=== PATIENT | male | born 1955 | race Caucasian/White ===

== ENCOUNTER 2023-02-09 11:43 | Outpatient (CLI) | payer MEDICARE, OTHER, SELFPAY ==
[2023-02-09 19:42] LABS: Appearance Urine Clear (Clear); Bilirubin Urine Negative (Negative); Blood Urine Negative (Negative); Color Urine Yellow (Yellow); Glucose Urine UA Negative (Negative); Ketones Urine Negative (Negative); Leukocyte Esterase Ur Negative LEU/UL (Negative); Nitrate Urine Negative (Negative); Protein Urine Negative (Negative); Specific Grav Ur 1.007 (1.001-1.035); Urobilinogen Urine 0.2 mg/dL (<2.0); pH Urine 6.5 (5.0-9.0)
[2023-02-09 19:51] LABS: Add Urine Microscopic? NO
== END 2023-02-09 11:44 | disposition home or self-care (01) ==
PROVIDERS: PCP Emergency Medicine; Visit Provider Emergency Medicine
DX: N39.0 Urinary tract infection, site not specified (principal)
CPT/HCPCS: 81003; J2704

== ENCOUNTER 2023-07-12 10:06 | Outpatient (CLI) | payer MEDICARE, OTHER, SELFPAY ==
[2023-07-12 12:04] LABS: Alanine Aminotransferase 17 U/L (6-50); Albumin Level 4.6 g/dL (3.5-5.1); Alkaline Phosphatase 62 U/L (38-126); Anion Gap 5 mmol/L (4-12); Aspartate Amino Transferase 39 U/L (17-59); Bilirubin,Total 0.7 mg/dL (0.2-1.3); Blood Urea Nitrogen 13 mg/dL (9-20); Calcium 9.7 mg/dL (8.4-10.2); Carbon Dioxide 29 mmol/L (22-30); Chloride 107 mmol/L (98-107); Cholesterol 207 mg/dL (0-200); Estimated Glomerular Filt Rate > 60; Glucose 96 mg/dL (65-110); HDL Direct 47 mg/dL; Potassium 4.3 mmol/L (3.4-5.0); Sodium 141 mmol/L (137-145); Triglycerides 90 mg/dL (<150)
[2023-07-12 12:14] LABS: LDL Cholesterol Direct 128 mg/dL
[2023-07-12 12:32] LABS: Prostate Specific Antigen 7.2 ng/mL (< OR = 4.0)
[2023-07-12 17:23] LABS: Hemoglobin A1C 5.6 % (<5.7)
== END 2023-07-12 10:07 | disposition home or self-care (01) ==
LOC: ANHGOSHLAB 10:09
PROVIDERS: PCP Emergency Medicine; Visit Provider Emergency Medicine
DX: E78.5 Hyperlipidemia, unspecified (principal); R73.01 Impaired fasting glucose; R97.20 Elevated prostate specific antigen [PSA]; Z12.5 Encounter for screening for malignant neoplasm of prostate
CPT/HCPCS: 36415; 80053; 80061; 83036; 84153; G0103

== ENCOUNTER 2023-07-29 16:19 | Outpatient (CLI) | payer MEDICARE, OTHER, SELFPAY ==
--- NOTE | ~2023-07-29 | US_ITS ---
EXAMINATION: US soft tissue groin LT DATE: 07/29/2023 17:01 INDICATION: Unilateral left inguinal hernia presenting with one month of pain with exertion TECHNIQUE: Multiple grayscale and Doppler ultrasound images of the left inguinal region were obtained . COMPARISON: Pelvis MRI dated 03/20/2008 FINDINGS: No inguinal hernia identified on the provided images. No pathologically enlarged lymphadenopathy or o ther abnormal masses or fluid collections identified. IMPRESSION: 1. No evident left inguinal hernia however bilateral inguinal hernias are present at the time of a pe lvic MRI dated 03/20/2008. If there has not been prior inguinal hernia repair, would consider CT of t he pelvis for more further evaluation. Reviewed, dictated and finalized at location A. IMPRESSION: 1. No evident left inguinal hernia however bilateral inguinal hernias are prese nt at the time of a pelvic MRI dated 03/20/2008. If there has not been prior in guinal hernia repair, would consider CT of the pelvis for more further evaluati on.
== END 2023-07-29 16:20 | disposition home or self-care (01) ==
LOC: ANHIMG 16:20
PROVIDERS: PCP Emergency Medicine; Visit Provider Emergency Medicine
DX: K40.90 Unilateral inguinal hernia, without obstruction or gangrene, not specified as recurrent (principal)
CPT/HCPCS: 76882

== ENCOUNTER 2023-08-08 12:20 | Outpatient (CLI) | payer MEDICARE, OTHER, SELFPAY ==
--- NOTE | ~2023-08-08 | CT_ITS ---
EXAMINATION: CT abdomen pelvis wo con DATE: 08/08/2023 12:48 INDICATION: Unilateral inguinal hernia without obstruction. TECHNIQUE: Computed tomography (CT) of the abdomen and pelvis was performed without intravenous contr ast. Automated exposure control and iterative reconstruction technique were employed. The dose-length product was 681.56 mGy-cm. COMPARISON: Ultrasound 07/29/2023 FINDINGS: The visualized portions of the lung bases demonstrate mild atelectasis. No pleural effusion . The heart size is normal. No pericardial effusion. There is a 5 mm cyst in the liver. The gallbladd er, spleen, and adrenal glands are normal. There are calcifications in the head of the pancreas, cons istent with chronic pancreatitis. There is a 4 mm stone in right kidney. Left kidney is normal. The p rostate is moderately enlarged. There are bilateral inguinal hernias containing fat. There is diverti culosis of the colon without evidence of diverticulitis. The appendix is normal. There are no dilated loops of bowel. There are no pathologically enlarged lymph nodes. There is no free intraperitoneal f luid. There is moderate lumbar spondylosis. IMPRESSION: 1. Bilateral inguinal hernias containing fat. Reviewed, dictated and finalized at location A.
== END 2023-08-08 12:21 | disposition home or self-care (01) ==
LOC: ANHIMG 12:20
PROVIDERS: PCP Emergency Medicine; Visit Provider Emergency Medicine
DX: K40.20 Bilateral inguinal hernia, without obstruction or gangrene, not specified as recurrent (principal)
CPT/HCPCS: 74176

== ENCOUNTER 2023-08-26 12:43 | Outpatient (CLI) | payer MEDICARE, OTHER, SELFPAY | END 2023-08-26 12:44 | disposition home or self-care (01) | LOC: ANHSURGERY 12:48 | PROVIDERS: PCP Emergency Medicine; Visit Provider Surgery | DX: Z01.818 Encounter for other preprocedural examination (principal); K40.90 Unilateral inguinal hernia, without obstruction or gangrene, not specified as recurrent | CPT/HCPCS: 36415; 86850; 86900; 86901 ==

== ENCOUNTER 2023-08-31 03:28 | Day surgery (SDC) | payer MEDICARE, OTHER, SELFPAY ==
--- NOTE | 2023-08-23 13:37 | PC.NURSE ---
Report to the Outpatient Waiting Room, entrance under the green pavilion located off [facility], at time ___11:30 AM____ on date ___08/31/23____. Planned Procedure Time: _1:30 PM . Time changes happen often and if your time is changed the preop area will call you the afternoon before. - You and your visitor will be asked to self-screen and do not enter if you have any COVID symptoms. - A mask is optional within the hospital at this time. Patients may have clear liquids (water, carbonated beverages, clear teas, apple juice) until 3 hours prior to surgery(10:30AM) with a maximum of 20 ounces. - No food from midnight until time of surgery - Infants may have breast milk until 4 hours before surgery, infant formula 6 hours prior to surgery. - Children will be allowed to drink immediately following surgery. If applicable, please bring a bottle or sippy cup to assist with drinking. Juice, water, soda, and popsicles are readily available. For infants on formula, please bring formula the day of surgery. Pacifiers are allowed. Take the following medications with a SIP of water the morning of surgery: __INHALER IF NEEDED DO NOT STOP ANY OF YOUR OTHER PRESCRIPTION MEDICATIONS PRIOR TO SURGERY ?EXCEPT THE FOLLOWING Medications to discontinue per physician HOLD ALL VITAMINS AND SUPPLEMENTS 3 DAYS PRE OP .LAST DOSE 08/27/23 Please no make-up, nail swedish, hairspray, perfume, deodorant, or body powder the day of surgery. No jewelry (including any body piercings) or valuables the day of surgery, leave them at home. Please take a shower or bath the night before, or the morning of, surgery with an antibacterial soap. Wear comfortable, loose fitting clothing. Children are encouraged to wear pajamas. - Jewelry must be removed prior to entering the operating room. Rings and piercings that are not removed may be cut off. - The hospital will not accept responsibility for valuables. - Please leave all valuables, including medications, at home the day of surgery. If you are going home after surgery, a licensed bellman driver must drive you home. - NO public transportation without another adult if you receive anesthesia. - We recommend that an adult stay with you for 24 hours following discharge. - We also recommend that you do not drive, make important decision, drink alcoholic beverages, or take any drugs that were not prescribed by your health care provider for at least 24 hours after your discharge time. Follow any additional instructions given to you from your surgeon. If you or anyone in your household have experienced Covid symptoms in the past week, please notify your surgeon or the nurse liaison at the phone number below for possible testing. Telephone instructions given to __PATIENT and asked if any additional questions and then verbalized understanding. Patient advised to call surgeon office or pre surgery nurse liaison [phone] if any additional questions.
[2023-08-23 13:43] VITALS: BMI 25.7
[2023-08-31] VITALS (11 sets, daily range): BP systolic 120–160; BP diastolic 56–72; PULSE 54–67; RESP 12–20; TEMP 36.2–36.5; O2SAT 94–100
[2023-08-31] MEDS: LACTATED RINGERS 1,000 ML 30 ML IV CONT ×3 (12:00→18:30)
[2023-08-31] MEDS: ACETAMINOPHEN 500 MG TABLET 1000 MG PO (12:49)
[2023-08-31] MEDS: KETOROLAC 15 MG/ML VIAL (*BKC) IV PUSH (12:49)
--- NOTE | 2023-08-31 13:13 | WPDANESEPPF ---
Anes - Initial Pre Proc Eval Procedure: Operation Date: 08/31/23 13:30 Proposed Procedures p Robotic Assisted Recurrent Left Inguinal Hernia Repair with Mesh, Primary Right Inguinal Hernia Repair with Mesh, Possible Open - Karthik Ferrell MD Date/Time: 08/31/23 13:13 Surgeon: Karthik Ferrell MD Pre Op Diagnosis: Recurrent Left Ing Hernia, Prim Right Ing Hernia Patient Data Age: 68 Gender: M Height: 1.83 m Weight: 85.6 kg Last Vital Signs Temp 97.7 F 08/31/23 12:00 Pulse 65 08/31/23 12:00 Resp 16 08/31/23 12:00 BP 160/72 H 08/31/23 12:00 Pulse Ox 100 08/31/23 12:00 O2 Del Method Room Air 08/31/23 12:00 Allergies Allergy/AdvReac Type Severity Reaction Status Date / Time No Known Drug Allergies Allergy Unknown Unknown Verified 08/31/23 12:43 Home Medications Medication Instructions Recorded Confirmed Type albuterol sulfate 90 mcg/actuation 2 puff inhalation Q4H PRN 06/08/22 08/31/23 Rx aerosol inhaler shortness of breath or wheezing #8.5 grams tizanidine 4 mg tablet 4 mg PO QHS PRN muscle spasticity 07/22/23 08/31/23 Rx #60 tabs cholecalciferol (vitamin D3) 50 50 mcg PO DAILY 08/23/23 08/31/23 History mcg (2,000 unit) tablet cyanocobalamin (vitamin B-12) 1,000 mcg PO DAILY 08/23/23 08/31/23 History 1,000 mcg tablet Patient hx anesthesia problems: none Family hx anesthesia problems: none Results Review: All pre-operative results and documents have been reviewed as part of the pre-operative evaluation. [facility] Past Medical History Medical History COVID 2020 Left inguinal hernia Surgical History Surgical History History of back surgery 2018 Family History Family History Father Hypertension Mother Hypertension Cancer Heart disease Cerebrovascular accident Sibling Cancer Hypertension Other Family history of cardiovascular disease Family history of malignant neoplasm Social History Social History Smoking status: Never smoker Alcohol intake: never Substance use: never Lack of Transportation: No Lack of Food: Never True Current Housing: I Have Housing Concerned About Future Housing: No Difficulty Paying Gas/Electric Bills: No Difficulty Paying for Meds: No Currently Unemployed: No Education: High School Diploma/GED Difficulty w/ Childcare or Family Care: No Living arrangements: with family Spiritual care concerns: No Anes - Eval Final PreProcedure Day of Procedure 08/31/23 13:13 Patient weight: normal Heart: regular rate and rhythm Lungs: clear to auscultation Airway: Mallampati scale (Missing bottom right and upper left teeth. None loose. ) class II Neurological: alert and oriented Last oral intake: >/= 8 hours ASA classification: II Emergent: no Anesthetic plan: proceed Anesthesia type and monitoring: general ETT and standard monitoring Results Review: All pre-operative results and documents have been reviewed as part of the pre-operative evaluation. Asthma, seasonal allergies, stable of recent. Informed Consent: The patient's anesthetic plan and its attendant risks and benefits were discussed with the patient/family/POA. Questions were solicited and answers provided to the satisfaction of the patient/family/POA.
--- NOTE | 2023-08-31 13:44 | WPDHPUPDATE1 ---
History and Physical Update Update Date/Time: 08/31/23 13:44 History and Physical has been reviewed, including an updated exam of the patient. There are NO changes in the patient's condition. Risks, benefits, and alternatives have been discussed and questions answered. Patient agrees to proceed with procedure.
[2023-08-31] MEDS: ceFAZolin 2 GM/D5W 50 ML 2 GM/50 ML BAG IVPB (13:50)
[2023-08-31] MEDS: BUPivacaine HCL 0.5% 10 ML AMP 30 ML INFILTRATE (14:16)
[2023-08-31] MEDS: LIDO 1%/EPINEPHRINE 1:100,000 50 ML VIAL 30 ML INFILTRATE (14:16)
--- NOTE | 2023-08-31 17:17 | PM.OP ---
Procedure Note - Brief Procedure Note - Brief Date of procedure: 08/31/23 Recurrent Left Ing Hernia, Prim Right Ing Hernia Post-op diagnosis: Same Procedure performed: Robotic assisted laparoscopic recurrent left inguinal hernia repair with Bard 3D mid weight mesh. Robotic assisted laparoscopic primary right inguinal hernia repair a Bard 3D mid weight mesh Surgeon: Karthik Ferrell MD Anesthesia: GETA Implants: Left-sided inguinal mesh [id number]. Right-sided inguinal mesh [id number]. Estimated blood loss (mL): 25 Drains: No Packing: No Pathology: None sent Complications: No immediate complications Condition: Stable Disposition: PACU
--- NOTE | 2023-08-31 17:34 | SUR.PHASEI ---
Simple mask removed at 1608
[2023-08-31] MEDS: ONDANSETRON INJ 4 MG/2 ML VIAL IV PUSH (18:03)
[2023-08-31] MEDS: oxyCODONE HCL (*CRX) 5 MG TAB IR PO (18:49)
[2023-08-31] MEDS: fentaNYL CITRATE INJ (*CRX) 100 MCG/2 ML VIAL 25 MCG IV PUSH (18:49)
[2023-08-31] MEDS: diphenhydrAMINE HCl INJ 50 MG/ML VIAL 25 MG IV PUSH (19:10)
--- NOTE | 2023-09-01 17:11 | W.PM.PROC2 ---
Procedure Note - Detailed Date of Procedure 09/01/23 Pre-op Diagnosis Recurrent Left Ing Hernia, Prim Right Ing Hernia Post-op Diagnosis Same Procedure Performed Robotic assisted laparoscopic recurrent left inguinal hernia repair with Bard 3D mid weight mesh Robotic assisted laparoscopic primary right inguinal hernia repair with Bard 3D mid weight mesh Surgeon aKrthik Ferrell MD Anesthesia General Indications Patient is a 68-year-old gentleman who had a left inguinal repair with mesh the open approach by Dr. Nelson about 4 to 5 years ago. Seen has started having recurrent pain in left groin and on CT scan was noted have recurrent left inguinal hernia. On physical examination he was also found to have a asymptomatic right inguinal hernia. He presents now for robotic assisted laparoscopic bilateral inguinal hernia repairs with mesh with the left being a recurrent inguinal hernia repair and the right being an Initial hernia repair with mesh. Findings On the left side the patient had a indirect recurrent left inguinal hernia. The previously placed mesh plug was noted to be scarred to the peritoneum and some of the mesentery to the sigmoid colon. There was no small bowel or colon within the hernia sac. The right inguinal hernia was a direct defect again without any bowel involvement. Description of Procedure After informed consent was obtained patient brought to the operating room was placed supine position and general endotracheal anesthesia was administered. The abdomen was then prepped and draped usual sterile fashion. A time-out was then performed correctly identifying the patient as well as procedure to be performed. He was given perioperative IV antibiotics. I then started by making a small stab incision left upper quadrant then utilizing a 10mm Optiview port and the abdomen under direct visualization. Once inside the abdomen insufflated to adequate pneumoperitoneum of 15mmHg of CO2. Then a patient patient a 15degree head-down Trendelenburg position along bowel to fall out the pelvis. There was 1 loop of sigmoid colon which a portion the mesentery was adherent to the peritoneum and what appeared to be the mesh plug from the prior left inguinal hernia repair. The recurrent hernia on the left side was an indirect inguinal hernia. There is no bowel in the hernia sac. On the right side there was a first-time primary direct right inguinal hernia without bowel involvement. I then proceeded to additional robotic trocar ports across the mid abdomen the [employer] robot was then brought to the patient's bedside and docked and the robotic ports were then attached robotic arms. Robotic instruments were then advanced into the abdomen under direct visualization. I then proceeded to make the preperitoneal flap extending it at the level of the anterior superior iliac spine on the left and taking it all the way across the lower abdomen to the right side. Dissection was then carried in the preperitoneal space taking down the bladder all the way down to the pubic symphysis and bilateral pubic tubercles. First on the right side I dissected laterally utilizing robotic dissection To remove the preperitoneal fat out of the pseudo sac in the direct space. I then dissected the peritoneum off of the internal ring and identified the vas deferens and testicular vessels. These were then dissected out separately as well as a large cord lipoma. The cord lipoma was dissected so that it was removed from the internal ring and then resected and removed from the abdomen via the 10mm left upper quadrant trocar port site. Once I had continue to take down the right side a peritoneal flap I dissected up onto this right psoas muscle so that I could get enough proximal dissection done on the peritoneum. I then closed the direct defect on the right side utilizing an absorbable 2 0V lock she also imbricate the pseudo sac with the closure. I then turned my attention towards the left kassidy
== END 2023-08-31 19:57 | disposition home or self-care (01) ==
PROVIDERS: PCP Emergency Medicine; Visit Provider Surgery
PROC: 8E0Y4CZ Robotic Assisted Procedure of Lower Extremity, Percutaneous Endoscopic Approach (ICD-10-PCS; CPT 49650; principal; 2023-08-31 13:30)
DX: K40.91 Unilateral inguinal hernia, without obstruction or gangrene, recurrent (principal); K40.90 Unilateral inguinal hernia, without obstruction or gangrene, not specified as recurrent; Z79.51 Long term (current) use of inhaled steroids
CPT/HCPCS: 49651; 49650; S2900; A9270; C1781; J0330; J0690; J1100; J1170; J1200; J1885; J2250; J2405; J2704; J3010; J7120

== ENCOUNTER 2023-10-07 01:58 | Day surgery (SDC) | payer MEDICARE, OTHER, SELFPAY ==
[2023-09-22 13:45] VITALS: BMI 25.1
[2023-10-07 06:51] VITALS: BP 152/78; PULSE 80; RESP 18; TEMP 36.2; O2SAT 98
[2023-10-07] MEDS: LACTATED RINGERS 1,000 ML 150 ML IV CONT (06:55)
--- NOTE | 2023-10-07 07:47 | PM.IMHP ---
H&P: HPI History of Present Illness Date/Time: 10/07/23 07:47 Chief Complaint: screening for colorectal cancer Narrative: this is a 68-year-old man who presents for colonoscopy. His last colonoscopy was 12 years ago. He denies any hematochezia or melena. He does have a family history colon cancer in his brother. Review of Systems Review of Systems: All systems reviewed & are unremarkable except as noted in HPI and below Constitutional: Constitutional: Denies chills, Denies fever(s), Denies headache(s) and Denies weight loss Eyes: Eyes: Denies change in vision ENT: Denies dizziness, Denies headache(s), Denies neck mass and Denies throat swelling Cardiovascular: Cardiovascular: Denies chest pain, Denies lightheadedness and Denies dyspnea Respiratory: Respiratory: Denies cough, Denies dyspnea and Denies wheezing Gastrointestinal: Gastrointestinal: Denies abdominal pain, Denies change in bowel habits, Denies nausea and Denies vomiting Genitourinary: Genitourinary: Denies hematuria and Denies dysuria Musculoskeletal: Musculoskeletal: Reports as per HPI Integumentary/Breasts: Skin/Breast: Reports as per HPI Neurologic: Denies dizziness and Denies headache(s) Allergic/Immunologic: Allergic/Immunologic: Denies throat swelling and Denies wheezing [facility] Past Medical History Medical History (Updated 10/07/23 @ 07:48 by Cameron Mackay DO) COVID 2020 Left inguinal hernia Surgical History Surgical History (Updated 09/14/23 @ 10:34 by Maida Paredes CMA) H/O left inguinal hernia repair recurrent LIH repair with mesh Karthik Ferrell MD 08/31/23 H/O right inguinal hernia repair Karthik Fererll MD 08/31/23 History of back surgery 2019 Family History Family History Father Hypertension Mother Hypertension Cancer Heart disease Cerebrovascular accident Sibling Cancer Hypertension Other Family history of cardiovascular disease Family history of malignant neoplasm Social History Social History Smoking status: Never smoker Alcohol intake: never Substance use: never Lack of Transportation: No Lack of Food: Never True Current Housing: I Have Housing Concerned About Future Housing: No Difficulty Paying Gas/Electric Bills: No Difficulty Paying for Meds: No Currently Unemployed: No Education: High School Diploma/GED Difficulty w/ Childcare or Family Care: No Living arrangements: with family Spiritual care concerns: No Meds Home Medications and Allergies Home Medications Medication Instructions Recorded Confirmed Type albuterol sulfate 90 mcg/actuation 2 puff inhalation Q4H PRN 06/08/22 09/22/23 Rx aerosol inhaler shortness of breath or wheezing #8.5 grams cholecalciferol (vitamin D3) 50 50 mcg PO DAILY 08/23/23 10/07/23 History mcg (2,000 unit) tablet cyanocobalamin (vitamin B-12) 1,000 mcg PO DAILY 08/23/23 09/22/23 History 1,000 mcg tablet tizanidine 4 mg tablet 4 mg PO QHS PRN muscle spasticity 09/16/23 09/22/23 Rx #60 tabs Allergies Allergy/AdvReac Type Severity Reaction Status Date / Time No Known Drug Allergies Allergy Unknown Unknown Verified 10/07/23 06:49 Vital Signs Vital Signs - 24 hr 10/07/23 06:51 Temperature 36.2 C L Pulse Rate 80 Respiratory Rate 18 Blood Pressure 152/78 H Pulse Oximetry 98 Oxygen Delivery Room Air Exam Const: General: no acute distress and alert Orientation/consciousness: patient oriented x3 HENMT: Head: normocephalic and atraumatic Ears: hearing grossly normal bilaterally Face/Nose/Sinus: Normal nares present Mouth: Yes Normal oral and palatal mucosa present Eyes: Periorbital: periorbital findings normal Sclera: sclerae normal EOM: EOMs intact bilaterally Neck: Neck: normal visual inspection, no lymphadenopathy and trachea midline Chest: Chest palpation & inspect
--- NOTE | 2023-10-07 07:51 | WPDANESEPPF ---
Anes - Initial Pre Proc Eval Procedure: Operation Date: 10/07/23 08:00 Proposed Procedures p Screening Colonoscopy - Cameron Mackay DO Date/Time: 10/07/23 07:51 Surgeon: Cameron Mackay DO Pre Op Diagnosis: Neoplasm screening Patient Data Age: 68 Gender: M Height: 1.83 m Weight: 82.9 kg Last Vital Signs Temp 97.1 F L 10/07/23 06:51 Pulse 80 10/07/23 06:51 Resp 18 10/07/23 06:51 BP 152/78 H 10/07/23 06:51 Pulse Ox 98 10/07/23 06:51 O2 Del Method Room Air 10/07/23 06:51 Allergies Allergy/AdvReac Type Severity Reaction Status Date / Time No Known Drug Allergies Allergy Unknown Unknown Verified 10/07/23 06:49 Home Medications Medication Instructions Recorded Confirmed Type albuterol sulfate 90 mcg/actuation 2 puff inhalation Q4H PRN 06/08/22 09/22/23 Rx aerosol inhaler shortness of breath or wheezing #8.5 grams cholecalciferol (vitamin D3) 50 50 mcg PO DAILY 08/23/23 10/07/23 History mcg (2,000 unit) tablet cyanocobalamin (vitamin B-12) 1,000 mcg PO DAILY 08/23/23 09/22/23 History 1,000 mcg tablet tizanidine 4 mg tablet 4 mg PO QHS PRN muscle spasticity 09/16/23 09/22/23 Rx #60 tabs Patient hx anesthesia problems: none Family hx anesthesia problems: none Results Review: All pre-operative results and documents have been reviewed as part of the pre-operative evaluation. [facility] Past Medical History Medical History (Updated 10/07/23 @ 07:48 by Cameron Mackay DO) COVID 2020 Left inguinal hernia Surgical History Surgical History (Updated 09/14/23 @ 10:34 by Maida Paredes CMA) H/O left inguinal hernia repair recurrent LIH repair with mesh Karthik Ferrell MD 08/31/23 H/O right inguinal hernia repair Karthik Ferrell MD 08/31/23 History of back surgery 2019 Family History Family History Father Hypertension Mother Hypertension Cancer Heart disease Cerebrovascular accident Sibling Cancer Hypertension Other Family history of cardiovascular disease Family history of malignant neoplasm Social History Social History Smoking status: Never smoker Alcohol intake: never Substance use: never Lack of Transportation: No Lack of Food: Never True Current Housing: I Have Housing Concerned About Future Housing: No Difficulty Paying Gas/Electric Bills: No Difficulty Paying for Meds: No Currently Unemployed: No Education: High School Diploma/GED Difficulty w/ Childcare or Family Care: No Living arrangements: with family Spiritual care concerns: No Anes - Eval Final PreProcedure Day of Procedure 10/07/23 07:51 Patient weight: normal Heart: regular rate and rhythm Lungs: clear to auscultation Airway: Mallampati scale class II Neurological: alert and oriented Last oral intake: >/= 8 hours ASA classification: II Emergent: no Anesthetic plan: proceed Anesthesia type and monitoring: general GIVS and standard monitoring Results Review: All pre-operative results and documents have been reviewed as part of the pre-operative evaluation. Informed Consent: The patient's anesthetic plan and its attendant risks and benefits were discussed with the patient/family/POA. Questions were solicited and answers provided to the satisfaction of the patient/family/POA.
[2023-10-07 08:26] VITALS: BP 109/67; PULSE 95; RESP 17; O2SAT 95
[2023-10-07 08:36] VITALS: BP 115/70; PULSE 99; RESP 17; O2SAT 99
[2023-10-07 08:46] VITALS: BP 115/77; PULSE 67; RESP 17; O2SAT 100
== END 2023-10-07 09:04 | disposition home or self-care (01) ==
PROVIDERS: PCP Emergency Medicine; Visit Provider Surgery
PROC: 0DJD8ZZ Inspection of Lower Intestinal Tract, Via Natural or Artificial Opening Endoscopic (ICD-10-PCS; CPT 45378; principal; 2023-10-07 08:00)
DX: Z12.11 Encounter for screening for malignant neoplasm of colon (principal); D12.3 Benign neoplasm of transverse colon; D12.8 Benign neoplasm of rectum; K57.30 Diverticulosis of large intestine without perforation or abscess without bleeding; Z80.0 Family history of malignant neoplasm of digestive organs
CPT/HCPCS: 45385; 45381; 88305; J2704; J7120

== ENCOUNTER 2023-11-29 09:50 | Outpatient (CLI) | payer MEDICARE, OTHER, SELFPAY ==
--- NOTE | 2023-11-29 10:33 | ECG_ITS ---
Test Date: 2023-11-29 10:56:16 Measurements Intervals [place] Rate: 52 P: -8 LA: 165 QRS: -33 QRSD: 109 T: 13 QT: 424 QTc: 397 Interpretive Statements SINUS BRADYCARDIA LEFT AXIS DEVIATION VOLTAGE CRITERIA FOR LVH BASELINE ARTIFACT- II, III, AVR, AVL ,AVF BORDERLINE ECG No previous ECG available for comparison Electronically Signed On 11-29-2023 11:01:10 CDT by Ranulfo Abad D.O.
[2023-11-29 11:04] LABS: Hematocrit 43.1 % (42.0-52.0); Hemoglobin 14.7 g/dL (14.0-18.0)
== END 2023-11-29 09:51 | disposition home or self-care (01) ==
PROVIDERS: Anesthesiology; PCP Emergency Medicine; Visit Provider Surgery
DX: Z01.812 Encounter for preprocedural laboratory examination (principal); K63.5 Polyp of colon; I10 Essential (primary) hypertension; I44.4 Left anterior fascicular block
CPT/HCPCS: 36415; 85014; 85018; 93005

== ENCOUNTER 2023-12-15 08:30 | Inpatient (IN) | payer MEDICARE, OTHER, SELFPAY ==
--- NOTE | 2023-11-29 10:04 | PC.NURSE ---
Report to the Outpatient Waiting Room, entrance under the green pavilion located off [facility], at time __08:30am__on ___12/15/23____. Planned Procedure Time: ___10:30am .? Time changes happen often and if your time is changed the preop area will call you the afternoon before. - You and your visitor will be asked to self-screen and do not enter if you have any COVID symptoms. Please call surgeon if you need to reschedule. - A mask is optional within the hospital at this time. Patients may have clear liquids (water, carbonated beverages, clear teas, apple juice) until ( 07:30am) 3 hours prior to surgery with a maximum of 20 ounces. - No food from midnight until time of surgery and no smoking. Take only the following medications with a SIP of water on the morning of surgery: ____Inhaler as needed DO NOT STOP ANY OF YOUR OTHER PRESCRIPTION MEDICATIONS PRIOR TO SURGERY EXCEPT THE FOLLOWING Medications to discontinue per physician All Vitamins 3 days prior to surgery per Anesthesia Date to take last dose___12/11/23 Please no make-up, nail afghan, hairspray, perfume, deodorant, or body powder the day of surgery.? No jewelry (including any body piercings) or valuables the day of surgery, leave them at home.? Please take a shower or bath the night before, or the morning of, surgery with an antibacterial soap.? Wear comfortable, loose fitting clothing.? Children are encouraged to wear pajamas. - Jewelry must be removed prior to entering the operating room.? Rings and piercings that are not removed may be cut off. - The hospital will not accept responsibility for valuables.? - Please leave all valuables, including medications, at home the day of surgery. If you are going home after surgery, a licensed fast food delivery driver must drive you home.? - NO public transportation without another adult if you receive anesthesia. - We recommend that an adult stay with you for 24 hours following discharge. - We also recommend that you do not drive, make important decision, drink alcoholic beverages, or take any drugs that were not prescribed by your health care provider for at least 24 hours after your discharge time. Follow any additional instructions given to you from your surgeon. Telephone instructions given to ___patient and asked if any additional questions and then verbalized understanding. Patient advised to call surgeon office or pre surgery nurse liaison [phone] if any additional questions.
[2023-11-29 10:08] VITALS: BP 155/71; PULSE 59; RESP 16; TEMP 36.8; O2SAT 98; BMI 26.0
[2023-12-15] VITALS (11 sets, daily range): BP systolic 106–134; BP diastolic 58–75; PULSE 62–84; RESP 11–20; TEMP 35.9–37.1; O2SAT 94–100; BMI 24.7
[2023-12-15] MEDS: LACTATED RINGERS 1,000 ML 30 ML IV CONT ×2 (09:40→16:51)
[2023-12-15] MEDS: KETOROLAC 15 MG/ML VIAL (*BKC) IV PUSH ×2 (10:08→16:04)
[2023-12-15] MEDS: ALVIMOPAN 12 MG CAPSULE PO ×2 (10:08→20:41)
[2023-12-15] MEDS: ACETAMINOPHEN 500 MG TABLET 1000 MG PO (10:08)
--- NOTE | 2023-12-15 10:12 | P.PNAN_ITS ---
Anes - Initial Pre Proc Eval Procedure: Operation Date: 12/15/23 10:30 Proposed Procedures p Robotic Assisted Laparoscopic Partial Transverse Colectomy - Karthik Ferrell MD Date/Time: 12/15/23 10:12 Surgeon: Karthik Ferrell MD Pre Op Diagnosis: transverse colon tubular adenoma Patient Data Age: 68 Gender: M Height: 1.83 m Weight: 87.2 kg Last Vital Signs Temp 36.8 C 11/29/23 10:08 Pulse 59 L 11/29/23 10:08 Resp 16 11/29/23 10:08 BP 155/71 H 11/29/23 10:08 Pulse Ox 98 11/29/23 10:08 O2 Del Method Room Air 11/29/23 10:08 Allergies Allergy/AdvReac Type Severity Reaction Status Date / Time No Known Drug Allergies Allergy Unknown Unknown Verified 11/29/23 10:34 Home Medications Medication Instructions Recorded Confirmed Type albuterol sulfate 90 mcg/actuation 2 puff inhalation Q4H PRN 06/08/22 11/29/23 Rx aerosol inhaler shortness of breath or wheezing #8.5 grams cholecalciferol (vitamin D3) 50 50 mcg PO DAILY 08/23/23 11/29/23 History mcg (2,000 unit) tablet cyanocobalamin (vitamin B-12) 1,000 mcg PO DAILY 08/23/23 11/29/23 History 1,000 mcg tablet tizanidine 4 mg tablet 4 mg PO QHS PRN muscle spasticity 11/10/23 11/29/23 Rx #60 tabs lisinopril 5 mg tablet 5 mg PO DAILY 11/29/23 11/29/23 History ciprofloxacin HCl 500 mg tablet 500 mg PO .COMPLEX #1 tablet 12/13/23 Rx metronidazole 500 mg tablet 500 mg PO .COMPLEX #3 tabs 12/13/23 Rx Patient hx anesthesia problems: none Family hx anesthesia problems: none Results Review: All pre-operative results and documents have been reviewed as part of the pre- operative evaluation. [facility] Past Medical History Medical History (Updated 12/15/23 @ 10:12 by Curtis King MD) COVID 2020 Elevated PSA Hyperlipidemia Left inguinal hernia Surgical History Surgical History H/O left inguinal hernia repair recurrent LIH repair with mesh Karthik Ferrell MD 08/31/23 H/O right inguinal hernia repair Karthik Ferrell MD 08/31/23 History of back surgery 2019 Family History Family History Father Hypertension Mother Hypertension Cancer Heart disease Cerebrovascular accident Sibling Cancer Hypertension Other Family history of cardiovascular disease Family history of malignant neoplasm Social History Social History Smoking status: Never smoker Alcohol intake: never Substance use: never Lack of Transportation: No Lack of Food: Never True Current Housing: I Have Housing Concerned About Future Housing: No Difficulty Paying Gas/Electric Bills: No Difficulty Paying for Meds: No Currently Unemployed: No Education: High School Diploma/GED Difficulty w/ Childcare or Family Care: No Living arrangements: with family Additional living arrangements comments: Spiritual care concerns: No Anes - Eval Final PreProcedure Day of Procedure 12/15/23 10:12 Patient weight: overweight Heart: regular rate and rhythm Lungs: clear to auscultation Airway: Mallampati scale class II Neurological: alert and oriented Last oral intake: >/= 8 hours ASA classification: III Emergent: no Anesthetic plan: proceed Anesthesia type and monitoring: general ETT and standard monitoring Results Review: All pre-operative results and documents have been reviewed as part of the pre- operative evaluation. Informed Consent: The patient's anesthetic plan and its attendant risks and benefits were discussed with the patient/family/POA. Questions were solicited and answers provided to the satisfaction of the patient/family/POA.
--- NOTE | 2023-12-15 10:47 | P.HP_ITS ---
H&P: HPI History of Present Illness Date/Time: 12/15/23 10:47 Chief Complaint: Adenomatous polyp proximal transverse colon Narrative: Patient is a 68-year-old gentleman who underwent a bilateral robotic laparosc opic inguinal hernia repair with mesh in August 2023 by me. That procedure went very well. He had no issues in the recovery phase. He then underwent a screening colonoscopy by Dr. Mcakay about 2 months ago at which time a small benign rectal polyp was excised but the knee had a larger 3cm polyp proximal transverse colon / distal ascending colon which was biopsied. This showed a tubular adenoma without evidence atypia or malignant disease. Dr. Mackay did tattoo the area the polyp. Patient was subsequently referred back to me for further evaluation. Given the size the polyp a could not be completely excised although it is a relatively low risk polyp being a tubular adenoma. Options were discussed with the patient for referral to a interventional cook chef in [place] to try to endoscopically remove the polyp versus attempt at a robotic assisted laparoscopic colon resection to remove the polyp. He has chosen to proceed with a robotic assisted laparoscopic colon r esection. Skin changes health history is that he was diagnosed with prostate cancer from biopsies by Dr. Celeste from Urology. At the present time the workup is still ongoing to determine next steps in his treatment plans for his prostate cancer. Review of Systems Review of Systems: The remainder of the review of systems to include constitutional, HEENT, cardiovascular, respiratory, GI, , integumentary, musculoskeletal, endocrine, immunologic, hematologic, psychiatric, and neurologic are all negative except for which is mentioned above in the HPI. [facility] Past Medical History Medical History COVID 2020 Elevated PSA Hyperlipidemia Left inguinal hernia Surgical History Surgical History H/O left inguinal hernia repair recurrent LIH repair with mesh Karthik Ferrell MD 08/31/23 H/O right inguinal hernia repair Karthik Ferrell MD 08/31/23 History of back surgery 2019 Family History Family History Father Hypertension Mother Hypertension Cancer Heart disease Cerebrovascular accident Sibling Cancer Hypertension Other Family history of cardiovascular disease Family history of malignant neoplasm Social History Social History Smoking status: Never smoker Alcohol intake: never Substance use: never Lack of Transportation: No Lack of Food: Never True Current Housing: I Have Housing Concerned About Future Housing: No Difficulty Paying Gas/Electric Bills: No Difficulty Paying for Meds: No Currently Unemployed: No Education: High School Diploma/GED Difficulty w/ Childcare or Family Care: No Living arrangements: with family Additional living arrangements comments: Spiritual care concerns: No Meds Home Medications and Allergies Home Medications Medication Instructions Recorded Confirmed Type albuterol sulfate 90 mcg/actuation 2 puff inhalation Q4H PRN 06/08/22 11/29/23 Rx aerosol inhaler shortness of breath or wheezing #8.5 grams cholecalciferol (vitamin D3) 50 50 mcg PO DAILY 08/23/23 11/29/23 History mcg (2,000 unit) tablet cyanocobalamin (vitamin B-12) 1,000 mcg PO DAILY 08/23/23 11/29/23 History 1,000 mcg tablet tizanidine 4 mg tablet 4 mg PO QHS PRN muscle spasticity 11/10/23 11/29/23 Rx #60 tabs lisinopril 5 mg tablet 5 mg PO DAILY 11/29/23 11/29/23 History ciprofloxacin HCl 500 mg tablet 500 mg PO .COMPLEX #1 tablet 12/13/23 Rx metronidazole 500 mg tablet 500 mg PO .COMPLEX #3 tabs 12/13/23 Rx Allergies Allergy/AdvReac Type Severity Reaction Status Date / Time No Known Drug Allergies Allergy Unknown Unknown Verified 12/15/23 10:20 Vital Signs Vital Signs - 24 hr 12/15/23 08:45 Temperature 36.3 C L Pulse Rate 65 Respiratory Rate 16 Blood Pressure 127/73 Pulse Oximetry 97 Oxygen Delivery Room Air Exam Const: General: comfortable and no acute distress HENMT: Ears: TM's normal bilaterally Face/Nose/Sinus: Normal nares present Mouth: Yes moist mucous membranes Eyes: General: appearance normal, both eyes and all related structures Sclera: sclerae normal Pupils: Equal, round and reactive pupils present EOM: EOMs intact bilaterally Neck: Neck: supple and no JVD Resp: Effort & Inspection: normal respiratory effort Auscultation: clear to auscultation bilaterally Cardio: Rate: regular rate Rhythm: regular rhythm GI: Other: Abdomen is soft and nondistended. Well-healed laparoscopic port site incisions across the abdomen. No port site hernias. No evidence of bilateral recurrent inguinal hernias. Skin: General skin exam: normal color and no rashes or lesions noted Neuro: General: gait normal Speech: normal speech Motor exam (neuro): 5/5 motor strength present throughout Sensory Exam: normal sensation Extrem: General: normal to inspection Psych: Mental Status: mental status grossly normal Affect: normal affect Assessment and Plan Assessment and plan (1) Polyp of transverse colon: Qualifiers: Colon polyp type: adenomatous Qualified Code(s): D12.3 - Benign neoplasm of transverse colon Code(s): K63.5 - Polyp of colon Status: Acute Assessment and Plan: Patient presents today for robotic assisted laparoscopic colon resection to remove a proximal transverse colon tubular adenoma. Risks, benefits, indicati ons, and expected outcomes were discussed in detail with the patient and/or family. Risks to include conversion to open colon resection as well as anastomotic leak was discussed. They understand and I have answered all other questions. They wished to proceed with surgery as outlined above.
--- NOTE | 2023-12-15 10:54 | WPDHPUPDATE1 ---
History and Physical Update Update Date/Time: 12/15/23 10:54 History and Physical has been reviewed, including an updated exam of the patient. There are NO changes in the patient's condition. Risks, benefits, and alternatives have been discussed and questions answered. Patient agrees to proceed with procedure.
[2023-12-15] MEDS: ceFAZolin 2 GM/D5W 50 ML 2 GM/50 ML BAG IVPB (11:58)
[2023-12-15] MEDS: metroNIDAZOLE 500 MG/ISO 100ML 500 MG/100 ML BAG 100 MG IVPB (12:19)
[2023-12-15] MEDS: BUPIVACAINE/EPINEPHRINE 0.5% 50 ML VIAL 30 ML INFILTRATE (13:26)
[2023-12-15] MEDS: LIDOCAINE HCL 1% LOCAL INJ 20 ML VIAL 30 ML INFILTRATE (13:27)
[2023-12-15] MEDS: fentaNYL CITRATE INJ (*CRX) 100 MCG/2 ML VIAL 25 MCG IV PUSH (16:51)
--- NOTE | 2023-12-15 17:06 | PM.OP ---
Procedure Note - Brief Procedure Note - Brief Date of procedure: 12/15/23 transverse colon tubular adenoma Post-op diagnosis: Same Procedure performed: Robotic assisted laparoscopic segmental transverse colon resection with stapled [id number] colonic anastomosis. Surgeon: Karthik Ferrell MD Surgery Nurse: Cornelius GALVEZ Anesthesia: GETA Implants: None Estimated blood loss (mL): 25 Drains: No Packing: No Pathology: Yes (Segment of transverse colon sent to pathology) Complications: No immediate complications Condition: Stable Disposition: PACU
--- NOTE | 2023-12-15 18:12 | ADMGEN ---
This patient, He Hernandez, was admitted to -. Patient/family oriented to hospital policies and general routines including ID bracelet, bed and alarms, visiting hours, pain management, procedures, bathroom and other care routines, personal items, smoking policy, room service/diet, and visiting hours. Information on how to activate the Rapid Response Team has been discussed. Patient/Family are encouraged to report perceived risks to care and to ask questions if they do not understand what they are told or what they should do.
[2023-12-15] MEDS: IBUPROFEN IV 800 MG/200 ML 800 MG/200 ML BAG 400 MG IVPB (18:32)
[2023-12-15] MEDS: HYDROcodone/acetaminophen (*CRX) 5-325 MG TABLET 1 TAB PO (18:32)
[2023-12-15] MEDS: LACTATED RINGERS 1,000 ML 125 ML IV CONT (18:33)
[2023-12-15] MEDS: ONDANSETRON INJ 4 MG/2 ML VIAL IV PUSH (18:59)
[2023-12-15] MEDS: ceFAZolin 1 GM/NS 50 ML 1 GM/50 ML BAG IVPB (20:41)
--- NOTE | 2023-12-15 21:09 | W.PM.PROC2 ---
Procedure Note - Detailed Date of Procedure 12/15/23 Pre-op Diagnosis Transverse colon tubular adenoma Post-op Diagnosis Same Procedure Performed Robotic assisted laparoscopic segmental transverse colon resection with stapled [id number] colonic anastomosis Surgeon Karthik Ferrell MD Manager [employer] LEONOR Victor Anesthesia General Indications patient is a 68-year-old gentleman who underwent a screening colonoscopy was found to have 2 polyps. One was in the rectum which was removed with polypectomy snare completely. It was benign. A larger 2nd polyp measuring approximately 3cm was partially removed by snare polypectomy. The pathology showed that it was a tubular adenoma. Patient was seen back in the office and options for treatment were discussed. One option of referral to Interventional endoscopist to trying removed the remaining part of the polyp was discussed versus surgical resection of that portion of the mid transverse colon. The location of the polyp in the transverse colon was marked with black ink. The patient chose to proceed with a segmental resection of the mid transverse colon where the polyp was located by robotic assisted laparoscopic approach he now presents for that procedure. Findings The marking of the polyp was in the mid transverse colon. The patient had a rather redundant transverse colon and the cecum was actually near the right upper quadrant. There were some adhesions of the colon to the gallbladder which were taken down easily with robotic dissection. Approximately 5cm of mid transverse colon was resected at the location where the polyp was marked with Olga ink. The specimen was opened on the back table to reveal the site of the polypectomy in the remaining portion of the polyp. The specimen sent to pathology for examination. A [id number] stapled colonic anastomosis was performed laparoscopically . Description of Procedure After informed consent was obtained patient brought to the operating room placed supine position and then general endotracheal anesthesia was administered Seaman catheter was placed decompress the bladder and the orogastric tube was placed decompress the stomach. The abdomen is then prepped draped usual sterile fashion. A time-out was then performed correctly identifying the patient as well as procedure to be performed. He was given perioperative IV antibiotics. I then entered the abdomen the left upper quadrant utilizing a 5mm Optiview port. Once inside the abdomen insufflated to adequate pneumoperitoneum of 15mmHg of CO2. A quick laparoscopic survey of the abdomen revealed there is good positioning of the previously placed bilateral inguinal hernia meshes which had been repaired about 3 months ago. The cecum was in the mid right lateral abdomen up towards the right upper quadrant. The transverse colon was very redundant. I could see that the marked area the colon within the ink with the polyp was located was in the mid transverse colon. I then placed additional robotic trocar ports were on the left lateral abdominal wall under direct visualization. I then scrubbed out the procedure after the [employer] robot was docked at the patient's bedside and the robotic arms were docked to the robotic ports. Robotic instruments advanced into the abdomen under direct visualization. I then proceeded to place the omentum over the top of the stomach and liver exposing the transverse colon. Again the transverse colon was pretty redundant. I then mobilized the omentum off of the transverse colon utilizing the vessel sealer. I then held the gallbladder over the right half liver and then took down adhesions of the omentum to the gallbladder wall to further mobilize the hepatic flexure of the colon. The hepatocolic ligament was divided to allow mobilization of the proximal portion of the transverse colon. I then proceeded to make a defect in the mesentery to the transverse colon in the midportion were the polyp was marked. A defect was made proximal to the inked area as well as distal to the inked area. I then proceeded to utilize a robotic laparoscopic Endo-CLARKE stapler measuring 60cm in length to divide the mid transverse colon at the resection points proximal and distal to the marked area. The small area of mesentery between the 2 resection points was divided utilizing the vessel sealer. That segment of transverse colon was then left in the right upper quadrant to be retrieved later. I then decided to perform a robotic laparoscopic side to side colonic anastomosis. 3cc of ICG dye was injected intravenously. I then checked with firefly and 2 ends of the colon were well perfused. I then placed 3-0 Vicryl stay sutures to approximate the serosal edges of the 2 ends of the colon an Oliverio [id number] anti peristaltic configuration. I then made a defect in the end of each and the colon utilizing the robotic thor and then used another reload to the 60mm robotic stapler to make a common channel between the 2 ends of the colon. The resulting colotomy atop the anastomosis was then closed utilizing a running 3-0 absorbable V lock suture. The 1st layer approximated the mucosa and serosa which is then followed by a layer number sutures to approximate the serosa and imbricate the 1st layer in a running fashion with the same suture. The colotomy closed easily and there was no leaking. I then proceeded to pull the omentum down over the transverse colon again. The segment of transverse colon which were dissected was then placed into an Endo-Catch bag and was extracted out of 1 of the 12mm trocar port sites. The fascia at the port site had to be extended to remove the specimen. The specimen was then opened on the back table and I found the area the polypectomy site with a portion of the remaining adenomatous polyp present. The length of the segment that was removed was approximately 5cm. The specimens passed off table sent to pathology in formalin. I then proceeded to close the extraction site incision utilizing interrupted 0 Ethibond sutures. After the fascia was closed I then reach even pneumoperitoneum and then proceeded to close the remaining port sites utilizing a suture Passer and 0 Vicryl sutures placed transfascially. All the port sites were then removed under direct visualization all port sites were hemostatic. The abdomen was then allowed to decompress and the sutures were then tied down closing off the port sites. The incisions were then irrigated with sterile saline solution hemostasis was good. I then closed all the incisions utilizing a running subcuticular 4-0 Monocryl suture at the skin edges. The incisions were then closed dressed with skin glue. The patient tolerated the procedure well no complications. All sponges, needles, and instrument counts were correct at the end procedure. EBL was _25__cc. The patient was awakened and taken to recovery in stable and satisfactory condition. Implants None Estimated Blood Loss 25 Drains No Packing No Pathology Yes ( segment of mid transverse colon was measuring 5cm in length with the polypectomy site and remaining portion of the polyp was sent to pathology.) Complications No immediate complications Condition Stable Disposition PACU [facility] Billing Surgery - Charge Forward: Surgery Billing
[2023-12-16] MEDS: HYDROcodone/acetaminophen (*CRX) 5-325 MG TABLET 1 TAB PO (00:05)
[2023-12-16 00:30] VITALS: BP 112/56; PULSE 63; RESP 16; TEMP 36.1; O2SAT 96
[2023-12-16] MEDS: IBUPROFEN IV 800 MG/200 ML 800 MG/200 ML BAG 400 MG IVPB ×4 (00:36→17:00)
[2023-12-16 04:00] VITALS: BP 123/62; PULSE 64; RESP 16; TEMP 36.2; O2SAT 99
[2023-12-16] MEDS: ceFAZolin 1 GM/NS 50 ML 1 GM/50 ML BAG IVPB ×2 (05:36→13:59)
[2023-12-16 07:28] LABS: Basophils Percent Auto 0.1 % (0.2-1.2); Hematocrit 42.6 % (42.0-52.0); Hemoglobin 14.2 g/dL (14.0-18.0); Immature Granulocyte Absolute 0.03 K/mm3 (0.00-0.031); Immature Granulocyte Percent A 0.3 % (0-0.5); Lymphocytes Absolute Auto 1.34 K/mm3 (0.9-3.2); Lymphocytes Percent Auto 12.1 % (18.3-44.2); Mean Corpuscular HGB Conc 33.3 g/dl (32-36); Mean Corpuscular Hemoglobin 31.5 pg (26-34); Mean Corpuscular Volume 94.5 fl (80-100); Mean Platelet Volume 9.8 fl (7.4-10.4); Monocytes Absolute Auto 1.3 K/mm3 (0.1-0.6); Monocytes Percent Auto 11.4 % (2.6-8.5); Neutrophils Absolute Auto 8.4 K/mm3 (1.3-6.7); Neutrophils Percent Auto 76.1 % (45.5-73.1); Platelet Count Result 301 k/mm3 (150-375); Red Blood Count 4.51 M/mm3 (4.6-6.20); Red Cell Distribution Width 12.9 % (11.5-14.5); White Blood Count 11.1 K/mm3 (4.5-10.0)
[2023-12-16 07:39] LABS: Anion Gap 5 mmol/L (4-12); Blood Urea Nitrogen 10 mg/dL (9-20); Calcium 8.9 mg/dL (8.4-10.2); Carbon Dioxide 31 mmol/L (22-30); Chloride 100 mmol/L (98-107); Estimated CRCL calculation 64 ml/min; Estimated Glomerular Filt Rate > 60; Glucose 107 mg/dL (65-110); Potassium 4.5 mmol/L (3.4-5.0); Sodium 136 mmol/L (137-145)
[2023-12-16 08:00] VITALS: BP 140/68; PULSE 61; RESP 18; TEMP 35.7; O2SAT 98
--- NOTE | 2023-12-16 09:01 | P.PNGS_ITS ---
Progress Note: A&P Assessment and Plan (1) Polyp of transverse colon: Qualifiers: Colon polyp type: adenomatous Qualified Code(s): D12.3 - Benign neoplasm of transverse colon Code(s): K63.5 - Polyp of colon Status: Acute Assessment and Plan: Patient is postop day 1 following robotic assisted laparoscopic segmental transverse colon resection. He is having minimal incisional soreness and tolerating clear liquids well. Will advance to full liquids for lunch. Decrease IV fluids as his diet is being advanced. Increase activity as tolerated and ambulate in the halls. Plan I have discussed the patient's case and plan of care with Dr. Ferrell. Subjective Subjective Date/Time Seen: 12/16/23 09:01 Post Op day: 1 (Robotic assisted laparoscopic segmental transverse colon resection with stapled [id number] colonic anastomosis) Patient reports: tolerating liquids well, flatus, no bowel movement and afebrile Interval history: Patient doing well today. No nausea or vomiting. Tolerating clear liquids well. He has been walking laps this morning in the halls and tolerating this well. Reports minimal incisional soreness with movement and bending, but no abdominal pain. Exam Const: General: comfortable and no acute distress Orientation/consciousness: patient oriented x3 Resp: Effort & Inspection: normal respiratory effort Auscultation: clear to auscultation bilaterally Cardio: Rate: regular rate Rhythm: regular rhythm GI: Inspection: non-distended and incision (incisions dry and glue intact) GI Palp: Yes Soft to palpation, Yes Tenderness to palpation present (GI) (minimal incisional tenderness as to be expected) and No Guarding due to palpation present (GI) Auscultation: normal bowel sounds Neuro: General: moves all extremities and no focal motor deficits Extrem: General: no calf tenderness and no edema Psych: Mental Status: mental status grossly normal Insight: Good insight present (Psych) Objective Data Vital Signs Vital Signs: Vital Signs - 24 hr 12/15/23 16:51 12/15/23 17:00 12/15/23 17:15 Temperature 98 F Pulse Rate 68 62 70 Respiratory Rate 11 L 11 L 13 Blood Pressure 106/58 L 106/58 L 131/59 L Pulse Oximetry 99 99 94 Oxygen Delivery Simple Face Mask Simple Face Mask Room Air Oxygen Flow Rate 10 10 12/15/23 17:30 12/15/23 17:45 12/15/23 18:00 Temperature 96.7 F L Pulse Rate 72 70 76 Respiratory Rate 12 12 20 Blood Pressure 126/66 113/75 132/59 L Pulse Oximetry 98 100 99 Oxygen Delivery Room Air Room Air Oxygen Flow Rate 12/15/23 18:15 12/15/23 18:54 12/15/23 20:00 Temperature 96.7 F L 97.2 F L 98.7 F Pulse Rate 80 84 75 Respiratory Rate 20 20 18 Blood Pressure 130/60 126/68 134/70 Pulse Oximetry 100 100 99 Oxygen Delivery Oxygen Flow Rate 12/16/23 00:30 12/15/23 20:00 12/16/23 04:00 Temperature 97.0 F L 97.2 F L Pulse Rate 63 64 Respiratory Rate 16 16 Blood Pressure 112/56 L 123/62 Pulse Oximetry 96 99 Oxygen Delivery Room Air Oxygen Flow Rate 12/16/23 08:00 12/15/23 18:58 Temperature 96.2 F L 97.2 F L Pulse Rate 61 84 Respiratory Rate 18 20 Blood Pressure 140/68 126/68 Pulse Oximetry 98 Oxygen Delivery Oxygen Flow Rate Intake/Output Intake/Output: Intake & Output 12/13/23 12/14/23 12/15/23 12/16/23 23:59 23:59 23:59 23:59 Intake Total 500 1250 Balance 500 1250 Meds/Results Medications: Active Medications Generic Name Dose Route Start Last Admin Trade Name Freq PRN Reason Stop Dose Admin Acetaminophen 1,000 mg 12/15/23 17:47 Acetaminophen 500 Mg Tablet PO Q6H PRN Mild Pain (1-3) or Fever Hydrocodone Bitart/Acetaminophen 1 tab 12/15/23 17:47 12/16/23 00:05 Hydrocodone/Acetaminophen (*Crx) 5-325 Mg Tablet PO 1 tab Q4H PRN Administration Pain Rated 4-6 Albuterol 2 puff 12/15/23 17:47 Albuterol Sulfate (*Sp) Aerosol 1 Puff INHALATION Q4H PRN shortness of breath or wheezing Cyanocobalamin 1,000 mcg 12/16/23 09:00 Cyanocobalamin 1,000 Mcg Tablet PO DAILY [facility] Enoxaparin Sodium 40 mg 12/16/23 09:00 Enoxaparin 40 Mg/0.4 Ml Syringe SUB-Q DAILY [facility] Lactated Ringer's 1,000 mls @ 125 mls/hr 12/15/23 17:47 12/16/23 05:37 Lr - Lactated Ringers Iv IV CONT Not Given .Q8H MICKEY Ibuprofen 800 mg in 200 mls @ 400 mls/hr 12/15/23 17:47 12/16/23 06:05 Caldolor 800 Mg/200 Ml IVPB Infused Q6H [facility] Infusion Cefazolin Sodium 1 gm in 50 mls @ 100 mls/hr 12/15/23 21:00 12/16/23 06:05 Ancef 1 Gm/Ns 50 Ml IVPB 12/16/23 13:29 Infused Q8H [facility] Infusion Lisinopril 5 mg 12/16/23 09:00 Lisinopril 5 Mg Tablet PO DAILY [facility] Morphine Sulfate 4 mg 12/15/23 17:47 Morphine Sulfate (*Crx) 4 Mg/Ml Inj IV PUSH Q4H PRN Pain Rated 7-10 Ondansetron HCl 4 mg 12/15/23 17:47 12/15/23 18:59 Ondansetron Inj 4 Mg/2 Ml Vial IV PUSH 4 mg Q6H PRN Administration Nausea And Vomiting Oxycodone HCl 5 mg 12/15/23 17:47 Oxycodone Hcl (*Crx) 5 Mg Tab Ir PO Q4H PRN Pain Rated 7-10 Pantoprazole Sodium 40 mg 12/16/23 09:00 Pantoprazole 40 Mg Tablet PO QAM [facility] Tizanidine HCl 4 mg 12/15/23 17:47 Tizanidine Hcl 4 Mg Tablet PO QHS PRN muscle spasticity Vitamin D 2,000 units 12/16/23 09:00 Cholecalciferol 1,000 Units Tablet PO DAILY [facility] Labs Labs: Laboratory Results - last 24 hr 12/15/23 12/16/23 10:04 06:50 WBC 11.1 H RBC 4.51 L Hgb 14.2 Hct 42.6 MCV 94.5 MCH 31.5 MCHC 33.3 RDW 12.9 Plt Count 301 MPV 9.8 Immature Gran % (Auto) 0.3 Neut % (Auto) 76.1 H Lymph % (Auto) 12.1 L Woodruff % (Auto) 11.4 H Eos % (Auto) 0.0 Baso % (Auto) 0.1 L Lymph # (Auto) 1.34 [place]ruff # (Auto) 1.3 H Eos # (Auto) 0.0 Baso # (Auto) 0.0 Abs Immat Gran (auto) 0.03 Absolute Neuts (auto) 8.4 H Absolute Nucleated RBC 0.000 Nucleated RBC % 0.0 Sodium 136 L Potassium 4.5 Chloride 100 Carbon Dioxide 31 H Anion Gap 5 BUN 10 Creatinine 1.10 Estim Creat Clear Calc 64 Estimated GFR > 60 Glucose 107 Calcium 8.9 Blood Type A Positive Antibody Screen Negative
[2023-12-16] MEDS: PANTOPRAZOLE 40 MG TABLET PO (09:10)
[2023-12-16] MEDS: CYANOCOBALAMIN 1,000 MCG TABLET 1000 MCG PO (09:10)
[2023-12-16] MEDS: LACTATED RINGERS 1,000 ML 80 ML IV CONT (09:10)
[2023-12-16] MEDS: lisinopriL 5 MG TABLET PO (09:10)
[2023-12-16] MEDS: ENOXAPARIN 40 MG/0.4 ML SYRINGE SUB-Q (09:10)
[2023-12-16] MEDS: CHOLECALCIFEROL 1,000 UNITS TABLET 2000 UNITS PO (09:10)
[2023-12-16] MEDS: ALVIMOPAN 12 MG CAPSULE PO (09:10)
[2023-12-16 12:00] VITALS: BP 152/61; PULSE 57; RESP 18; TEMP 35.8; O2SAT 98
--- NOTE | 2023-12-16 13:54 | WPDANESPN ---
Anes - Prog Note Post-Op Date/Time: 12/16/23 13:54 Cardiovascular status: normal Respiratory status: normal Airway patency: baseline Mental status: baseline Post-Op hydration status: normal Vital Signs: Last Vital Signs Temp 35.8 C L 12/16/23 12:00 Pulse 57 L 12/16/23 12:00 Resp 18 12/16/23 12:00 BP 152/61 H 12/16/23 12:00 Pulse Ox 98 12/16/23 12:00 O2 Del Method Room Air 12/16/23 09:10 O2 Flow Rate 10 12/15/23 17:00 Pain Score (VAS): 05/01 I/O: Intake & Output 12/15/23 12/16/23 12/16/23 23:59 07:59 15:59 Intake Total 350 2250 440 Balance 350 2250 440 Laboratory Tests 12/16/23 06:50 12/16/23 06:50 12/16/23 06:50 WBC 11.1 H RBC 4.51 L Hgb 14.2 Hct 42.6 MCV 94.5 MCH 31.5 MCHC 33.3 RDW 12.9 Plt Count 301 MPV 9.8 Immature Gran % (Auto) 0.3 Neut % (Auto) 76.1 H Lymph % (Auto) 12.1 L [place] % (Auto) 11.4 H Eos % (Auto) 0.0 Baso % (Auto) 0.1 L Lymph # (Auto) 1.34 [place] # (Auto) 1.3 H Eos # (Auto) 0.0 Baso # (Auto) 0.0 Abs Immat Gran (auto) 0.03 Absolute Neuts (auto) 8.4 H Absolute Nucleated RBC 0.000 Nucleated RBC % 0.0 Sodium 136 L Potassium 4.5 Chloride 100 Carbon Dioxide 31 H Anion Gap 5 BUN 10 Creatinine 1.10 Estim Creat Clear Calc 64 Estimated GFR > 60 Glucose 107 Calcium 8.9 Post-procedural complaints: none Patient Feedback: Patient satisfied with anesthetic care.
[2023-12-16 16:00] VITALS: BP 135/66; PULSE 62; RESP 16; TEMP 36.2; O2SAT 97
--- NOTE | 2023-12-16 19:28 | PM.DS ---
DS: Admitting Diagnosis Discharge Date December 16, 2023 Admitting Diagnosis Transverse colonic tubular adenoma DS: Discharge Diagnosis Discharge Diagnosis (1) Polyp of transverse colon: Qualifiers: Colon polyp type: adenomatous Qualified Code(s): D12.3 - Benign neoplasm of transverse colon Code(s): K63.5 - Polyp of colon Status: Acute DS: Summary Hospital Course Reason for hospitalization: Transverse colon tubular adenoma Hospital Course: Patient is a 68 year old gentleman who underwent a screening colonoscopy. He was found to have 2 polyps 1 being in the rectum and a larger 1 in the mid transverse colon. The rectal polyp was completely the removed and it was benign. The larger polyp which was about 3cm in diameter according to the colonoscopy report was partially removed with a snare polypectomy and this was a benign tubular adenoma. The area the polypectomy was marked with Olga ink at the time of colonoscopy. It was discussed with the patient whether he should have another colonoscopy in 6 months on a serial basis 2 to 3 times to surveil the incompletely removed polyp or referral to a conventional endoscopist in [place] to try to remove the remaining polyp. Another option of just proceeding with a segmental resection of the segment of transverse colon was discussed and he elected to proceed with the segmental resection of the mid transverse colon to remove the whole polyp. He then underwent a bowel prep at home and then came to the [facility] on December 15, 2023 way underwent uncomplicated robotic assisted culture transverse colon resection with [id number] stapled anastomosis. Postoperatively he did very well in recovery room. Was then transferred to the surgical floor for observation overnight. The 1st evening of surgery he liquids and was able to get up and ambulate to the bathroom. He did well overnight needing only his scheduled IV ibuprofen for pain. The next morning he tolerated full liquids and was ambulating in the hallways and urinating well. He tolerated full liquids again for lunch and then had a bowel movement. He stated the port sites were little sore but he did not need any narcotic pain medications. He was doing well with the IV ibuprofen. He was then given low-fiber diet for dinner which he tolerated very well. I saw him on the evening of postop day 1 and he was doing very well and wished to go home. He was discharged home on postop day 1 in stable condition tolerating a diet and having had bowel movements. Status at Discharge Functional status at discharge: independent ambulation Overall status at discharge: patient is back to baseline Time Spent with Patient Time attestation: Total time spent providing and/or coordinating discharge services: Time spent: Less than 30 minutes Exam GI: Other: Abdomen is soft and nondistended. Left-sided port incisions are intact without any redness or drainage. Expected mild tenderness to palpation around the port sites. DS: Data Data Completed and Pending Pending studies at discharge: Pending at discharge 12/15/23 15:55 Surgical [PTH] Routine Labs on day of discharge: Labs from last 24 hours 12/16/23 06:50 WBC 11.1 H RBC 4.51 L Hgb 14.2 Hct 42.6 MCV 94.5 MCH 31.5 MCHC 33.3 RDW 12.9 Plt Count 301 MPV 9.8 Immature Gran % (Auto) 0.3 Neut % (Auto) 76.1 H Lymph % (Auto) 12.1 L [place] % (Auto) 11.4 H Eos % (Auto) 0.0 Baso % (Auto) 0.1 L Lymph # (Auto) 1.34 [place] # (Auto) 1.3 H Eos # (Auto) 0.0 Baso # (Auto) 0.0 Abs Immat Gran (auto) 0.03 Absolute Neuts (auto) 8.4 H Absolute Nucleated RBC 0.000 Nucleated RBC % 0.0 Sodium 136 L Potassium 4.5 Chloride 100 Carbon Dioxide 31 H Anion Gap 5 BUN 10 Creatinine 1.10 Estim Creat Clear Calc 64 Estimated GFR > 60 Glucose 107 Calcium 8.9 Discharge Plan Discharge Patient Disposition: Home, Self-Care Discharge Instructions: May discharge home in stable. Follow-up in the office with Dr. Ferrell in 2 weeks. Call [phone] for an appointment. No lifting more than 10-15 lb for 4 weeks. May have regular diet at home. No driving for 5 days. May shower in 24hours after surgery but no soaking incision under water for 2 weeks. Resume all home medications and a prescription for narcotic pain medications if needed will be sent to the patient's pharmacy. May use Tylenol and/or ibuprofen in addition to or in place of narcotic pain medications. Stand Alone Forms: General Discharge Instructions Follow-up/Referrals: Karthik Ferrell MD [Physician] - Discharge Medications: New hydrocodone-acetaminophen 5-325 mg tablet 1 - 2 tablet PO Q6H PRN (Reason: pain) Qty: 20 0RF Continued albuterol sulfate 90 mcg/actuation HFA aerosol inhaler 2 puff inhalation Q4H PRN (Reason: shortness of breath or wheezing) Qty: 8.5 2RF cyanocobalamin (vitamin B-12) 1,000 mcg Tablet 1,000 mcg PO DAILY cholecalciferol (vitamin D3) 50 mcg (2,000 unit) Tablet 50 mcg PO DAILY lisinopril 5 mg Tablet 5 mg PO DAILY tizanidine 4 mg tablet 4 mg PO QHS PRN (Reason: muscle spasticity) Qty: 60 0RF Discontinued ciprofloxacin HCl 500 mg tablet 500 mg PO .COMPLEX Qty: 1 0RF Rx Instructions: 500 mg orally at 2:00pm the day before surgery; metronidazole 500 mg tablet 500 mg PO .COMPLEX Qty: 3 0RF Rx Instructions: 500 mg orally at 1:00pm, 2:00pm, and 11:00pm the day before surgery.;
== END 2023-12-16 21:39 | disposition home or self-care (01) | DRG 331 ==
LOC: ANHSURGERY 08:37 → ANH3MEDSUR 12-16 16:38
PROVIDERS: Admitting Provider Surgery; PCP Emergency Medicine; Visit Provider Surgery
PROC: 0DTF4ZZ Resection of Right Large Intestine, Percutaneous Endoscopic Approach (ICD-10-PCS; principal; 2023-12-15 10:30)
DX: D12.3 Benign neoplasm of transverse colon (principal); C61 Malignant neoplasm of prostate; E78.5 Hyperlipidemia, unspecified
CPT/HCPCS: 36415; 80048; 85025; 86850; 86900; 86901; 88309; A9270; J0690; J1100; J1171; J1650; J1741; J1836; J1885; J2003; J2004; J2250; J2405; J2704; J3010; J7120

== ENCOUNTER 2024-10-30 08:05 | Outpatient (CLI) | payer MEDICARE, OTHER, SELFPAY ==
--- OUTSIDE RECORDS SUMMARY | 2024-10-30 08:14 | XMS_ITS | Clinical Summary ---
Author Organization [facility] Address [address] [place] [address] Care Team Providers Care Head Of Advertising Name Role Phone Rebekah Butler Primary Care Provider Social History Tobacco Use Types Packs/Day Years Used Date Smoking Tobacco: Never Assessed Sex and Gender Information Value Date Recorded Sex Assigned at Not on file Legal Sex Male 7:44 PM CDT Gender Identity Not on file Sexual Orientation Not on file Plan of Treatment Health Maintenance Due Date Last Done Comments Colorectal Cancer Screening Colonoscopy (10 Years) 1957 Hepatitis C 1975 DTaP, Tdap and Td Vaccines ( 1 - Tdap) 1976 Pneumococcal Vaccine: 50+ Years (1 of 1 - PCV) 2007 Zoster Vaccines (1 of 2) 2007 COVID-19 Vaccine (3 - 2023-2 5 season) 2023 12/09/2020, 11/18/2020 RSV Immunization or 60+ Years (1 - 1-dose 75+ series) 2032 Meningococcal B Vaccine Aged Out No l onger eligible based on patient's age to complete this topic Meningococcal Vaccine Aged Out No hollie janneth eligible based on patient's age to complete this topic RSV Immunizations Under 20 Months Aged Out No longer eligible b ased on patient's age to complete this topic Care Teams Head Of Advertising Relationship Specialty [place] [address] [place] [address] PCP - General PHYSICIAN ADAPTED PHYSICAL EDUCATION AIDE 10/27/21
--- OUTSIDE RECORDS SUMMARY | 2024-10-30 08:14 | XMS_ITS | Clinical Summary ---
Author Organization [facility] Address [address] [place] [address] Phone Care Team Providers Care Sane Rn Name Role Phone Provider, None Primary Care Provider Unavailabl e Allergies No known active allergies Medications ALBUTEROL IN take by inhalation. Active methylPREDNISol one (Medrol) 4 MG Tablet Therapy PackIndications :Cough Use as per instructions on package. 21 Tab 0 Active albuterol (ProAir HFA) 108 (90 Base) MCG/ACT Aerosol SolutionIndicat ions:Cough take 2 Puffs by inhalation every 4 hours as needed for Wheezing or Cough. 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 Gender Identity Not on file Sexual Orientation Not on file Last Filed Vital Signs Vital Sign Reading Time Taken Comments Blood Pressure 120/78 01/27/2020 3:10 PM PAINTING DEPARTMENT SUPERVISOR Pulse 77 01/27/2020 3:10 PM PAINTING DEPARTMENT SUPERVISOR Temperature 37.1 C (98.7 F) 01/27/2020 3:10 PM PAINTING DEPARTMENT SUPERVISOR Respiratory Rate 20 01/27/2020 3:10 PM PAINTING DEPARTMENT SUPERVISOR Oxygen Saturation 96% 01/27/2020 3:10 PM PAINTING DEPARTMENT SUPERVISOR Inhaled Oxygen Concentration - - Weight - - Height - - Body Mass Index - - Plan of Treatment Health Maintenance Due Date Last Done Comments Hepatitis C Virus (HCV) Screening 1955 TdaP Immunization 1955 Cologuard 2002 Colonoscopy 2002 Colorectal Cancer Screening 2002 Immunochemical Fecal Occult Blood 2002 Pneumococcal Immunization (5 0+ years) (1 of 1 - PCV) 2007 Zoster Immunization (1 of 2) 2007 SARS-COV-2 Immunization (3 - 2023- season) 2023 12/09/2020, 11/18/2020 Influenza Immunization (#1) 2024 Respiratory Syncytial Virus (RSV) Immunization (Adult) (1 - 1-dose 75+ series) 2032 Hepatitis B Immunization Aged Out No longer eligible based on patient's age to complete this topic Human Papillomavirus (HPV) Immunization Aged Out No longer eligible b ased on patient's age to complete this topic Meningococcal Immunization (ACWY) Aged Out No longer eligible b ased on patient's age to complete this topic Rotavirus Immunization Aged Out No lo nger eligible based on patient's age to complete this topic Care Teams Sane Rn Relationship Specialty Start Date End Date Provider, None [place] PCP - General 01/27/20
[2024-10-30 09:09] LABS: Hematocrit 47.7 % (42.0-52.0); Hemoglobin 15.8 g/dL (14.0-18.0); Immature Granulocyte Percent A 0.3 % (0-0.5); Lymphocytes Absolute Auto 1.62 K/mm3 (0.9-3.2); Mean Corpuscular HGB Conc 33.1 g/dl (32-36); Mean Corpuscular Hemoglobin 30.7 pg (26-34); Mean Corpuscular Volume 92.6 fl (80-100); Nucleated Red Blood Cells Absolute Auto 0.000 K/mm3 (0.0-0.012); Nucleated Red Blood Cells Perc 0.0 % (0.0-0.2); Platelet Count Result 305 k/mm3 (150-375); Red Blood Count 5.15 M/mm3 (4.6-6.20); White Blood Count 6.0 K/mm3 (4.5-10.0)
[2024-10-30 09:15] LABS: INR 1.0; Prothrombin Time 13.4 Seconds (11.1-14.7)
[2024-10-30 09:16] LABS: Partial Thromboplastin Time 26.3 Seconds (22.3-36.8)
[2024-10-30 09:22] LABS: Alanine Aminotransferase 17 U/L (6-50); Albumin Level 4.3 g/dL (3.5-5.1); Alkaline Phosphatase 56 U/L (38-126); Anion Gap 7 mmol/L (4-12); Aspartate Amino Transferase 24 U/L (17-59); Bilirubin,Total 0.5 mg/dL (0.2-1.3); Blood Urea Nitrogen 10 mg/dL (9-20); Calcium 9.3 mg/dL (8.4-10.2); Carbon Dioxide 27 mmol/L (22-30); Chloride 105 mmol/L (98-107); Estimated Glomerular Filt Rate > 60; Glucose 109 mg/dL (65-110); Potassium 4.6 mmol/L (3.4-5.0); Sodium 139 mmol/L (137-145); Total Protein 7.2 g/dL (6.3-8.2)
== END 2024-10-30 08:06 | disposition home or self-care (01) ==
LOC: ANHSURGERY 08:08
PROVIDERS: PCP Family Medicine; Visit Provider Urology
DX: C61 Malignant neoplasm of prostate (principal); Z01.818 Encounter for other preprocedural examination
CPT/HCPCS: 36415; 80053; 85025; 85610; 85730; 86850; 86900; 86901; 87086

== ENCOUNTER 2024-11-07 01:24 | Day surgery (SDC) | payer MEDICARE, OTHER, SELFPAY ==
--- NOTE | 2024-10-30 08:08 | PC.NURSE ---
Report to the Outpatient Waiting Room, entrance under the green pavilion located off [facility], at time _6 AM on date __11/07/24 . Planned Procedure Time: _7:30 AM .? Time changes happen often and if your time is changed the preop area will call you the afternoon before. - You and your visitor will be asked to self-screen and do not enter if you have any COVID symptoms. Please call surgeon if you need to reschedule. - A mask is optional within the hospital at this time. Patients may have clear liquids (water, carbonated beverages, clear teas, apple juice) until 3 hours prior to surgery( 4:30 AM) with a maximum of 20 ounces. - No food from midnight until time of surgery and no smoking, or chewing tobacco (or any form of nicotine). No chewing gum, candy or mints. Take only the following medications with a SIP of water on the morning of surgery: INHALER IF NEEDED DO NOT STOP ANY OF YOUR OTHER PRESCRIPTION MEDICATIONS PRIOR TO SURGERY EXCEPT THE FOLLOWING Hold all vitamins and supplements for 3 days per anesthesiologist. LAST DOSE 11/03/24 Medications to discontinue per physician NONE Please no make-up, nail danish, hairspray, perfume, deodorant, or body powder the day of surgery.? No jewelry (including any body piercings) or valuables the day of surgery, leave them at home.? Please take a shower or bath the night before, or the morning of, surgery with an antibacterial soap.? Wear comfortable, loose fitting clothing.? Children are encouraged to wear pajamas. - Jewelry must be removed prior to entering the operating room.? Rings and piercings that are not removed may be cut off. - The hospital will not accept responsibility for valuables.? - Please leave all valuables, including medications, at home the day of surgery. If you are going home after surgery, a licensed test car driver must drive you home.? - NO public transportation without another adult if you receive anesthesia. - We recommend that an adult stay with you for 24 hours following discharge. - We also recommend that you do not drive, make important decision, drink alcoholic beverages, or take any drugs that were not prescribed by your health care provider for at least 24 hours after your discharge time. Follow any additional instructions given to you from your surgeon. VERBAL AND WRITTEN instructions given to _PATIENT and asked if any additional questions and then verbalized understanding. Patient advised to call surgeon office or pre surgery nurse liaison [phone] if any additional questions.
[2024-10-30 08:11] VITALS: BMI 26.4
[2024-10-30 08:41] VITALS: BP 150/80; PULSE 63; RESP 18; TEMP 36.9; O2SAT 97
[2024-11-07] VITALS (17 sets, daily range): BP systolic 115–154; BP diastolic 59–76; PULSE 55–81; RESP 12–18; TEMP 35.9–36.9; O2SAT 92–100
--- OUTSIDE RECORDS SUMMARY | 2024-11-07 01:28 | XMS_ITS | Clinical Summary ---
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 MANAGER Gender Identity Not on file Sexual Orientation Not on file Last Filed Vital Signs Vital Sign Reading Time Taken Comments Blood Pressure 120/78 01/27/2020 3:10 PM HAIRMASTERS MANAGER Pulse 77 01/27/2020 3:10 PM HAIRMASTERS MANAGER Temperature 37.1 C (98.7 F) 01/27/2020 3:10 PM HAIRMASTERS MANAGER Respiratory Rate 20 01/27/2020 3:10 PM HAIRMASTERS MANAGER Oxygen Saturation 96% 01/27/2020 3:10 PM HAIRMASTERS MANAGER Inhaled Oxygen Concentration - - Weight - [...] age to complete this topic Care Teams Regional Facilities Manager Relationship Specialty Start Date End Date Provider, None [place] PCP - General 01/27/20
--- OUTSIDE RECORDS SUMMARY | 2024-11-07 01:28 | XMS_ITS | Clinical Summary ---
Author Organization [facility] Address [address] [place] [address] Care Team Providers Care Mass Spec Name Role Phone Rebekah Butler Primary Care [...] age to complete this topic Care Teams Mass Spec Relationship Specialty [place] [address] [place] [address] PCP - General PHYSICIAN SWITCHBOARD INSPECTOR 10/27/21
[2024-11-07] MEDS: LACTATED RINGERS 1,000 ML 30 ML IV CONT ×2 (06:45→13:34)
--- NOTE | 2024-11-07 07:02 | P.PNAN_ITS ---
Anes - Initial Pre Proc Eval Procedure: Operation Date: 11/07/24 07:30 Proposed Procedures p Robotic Assisted Nerve Sparing Laparoscopic Prostatectomy with Possible Bilateral Pelvic Lymph Node Dissection - Art Celeste MD Date/Time: 11/07/24 07:02 Surgeon: Art Celeste MD Pre Op Diagnosis: prostate cancer Patient Data Age: 69 Gender: M Height: 1.83 m Weight: 85.9 kg Last Vital Signs Temp 36.9 C 10/30/24 08:41 Pulse 63 10/30/24 08:41 Resp 18 10/30/24 08:41 BP 150/80 H 10/30/24 08:41 Pulse Ox 97 10/30/24 08:41 O2 Del Method Room Air 10/30/24 08:41 Allergies Allergy/AdvReac Type Severity Reaction Status Date / Time No Known Allergies Allergy Verified 11/07/24 06:58 Home Medications ?Medication ?Instructions ?Recorded ?Confirmed ?Type cholecalciferol (vitamin D3) 50 50 mcg PO DAILY 11/07/24 History mcg (2,000 unit) tablet cyanocobalamin (vitamin B-12) 1,000 mcg PO DAILY 08/2211/07/24 History 1,000 mcg tablet albuterol sulfate 90 mcg/actuation 2 puff inhalation Q 4H PRN 06/01/24 10/30/24 Rx aerosol inhaler shortness of breath or wheez ing #8.5 grams tizanidine 4 mg tablet See Rx Instructions .Route 0 08/15/24 10/30/24 Rx .COMPLEX #60 tabs lisinopril 5 mg tablet 5 mg PO HS 10/30/24 11/07/24 History Patient hx anesthesia problems: none Family hx anesthesia problems: none Results Review: All pre-operative results and documents have been reviewed as part of the pre- operative evaluation. [facility] Past Medical History Medical History (Updated 11/06/24 @ 13:51 by Jason Cortes DO) Asthma Prostate cancer Hyperlipidemia Elevated PSA COVID 2019 Left inguinal hernia Surgical History Surgical History History of partial colectomy 12/15/23 Robotic assisted laparoscopic segmental transverse colon resection with stapled [id number] colonic anastomosis Dr. Ferrell H/O right inguinal hernia repair Karthik Ferrell MD 08/31/23 H/O left inguinal hernia repair recurrent LIH repair with mesh Karthik Ferrell MD 08/31/23 History of back surgery 2019 Family History Family History Father Hypertension Mother Hypertension Heart disease Cerebrovascular accident Breast cancer Sibling Cancer Hypertension Carcinoma of colon Testicular cancer Other Family history of cardiovascular disease Family history of malignant neoplasm Social History Social History Smoking status: Never smoker Alcohol intake: never Substance use: never Do You Feel Safe in your Home?: Yes Lack of Transportation: No Lack of Food: Never True Current Housing: I Have Housing Concerned About Future Housing: No Difficulty Paying Gas/Electric Bills: No Difficulty Paying for Meds: No Currently Unemployed: No Education: Don't Know Difficulty w/ Childcare or Family Care: No Living arrangements: with family Additional living arrangements comments: Spiritual care concerns: No Anes - Eval Final PreProcedure Day of Procedure 11/07/24 07:02 Patient weight: overweight Heart: regular rate and rhythm Lungs: clear to auscultation Airway: Mallampati scale class II Neurological: alert and oriented Last oral intake: >/= 8 hours ASA classification: III Emergent: no Anesthetic plan: proceed Anesthesia type and monitoring: general ETT and standard monitoring Results Review: All pre-operative results and documents have been reviewed as part of the pre- operative evaluation. Informed Consent: The patient's anesthetic plan and its attendant risks and benefits were discussed with the patient/family/POA. Questions were solicited and answers provided to the satisfaction of the patient/family/POA.
--- NOTE | 2024-11-07 07:20 | PM.IMHP ---
H&P: HPI History of Present Illness Date/Time: 11/07/24 07:20 Chief Complaint: adenocarcinoma of prostate Narrative: 69 yr old male with adenocarcinoma of prostate. Presents for robotic assist nerve sparing prostatectomy with possible plnd Review of Systems Review of Systems: All systems reviewed & are unremarkable except as noted in HPI and below PMFSH Past Medical History Medical History Asthma Prostate cancer Hyperlipidemia Elevated PSA COVID 2019 Left inguinal hernia Surgical History Surgical History History of partial colectomy 12/15/23 Robotic assisted laparoscopic segmental transverse colon resection with stapled [id number] colonic anastomosis Dr. Ferrell H/O right inguinal hernia repair Karthik Ferrell MD 08/31/23 H/O left inguinal hernia repair recurrent LIH repair with mesh Karthik Ferrell MD 08/31/23 History of back surgery 2019 Family History Family History Father Hypertension Mother Hypertension Heart disease Cerebrovascular accident Breast cancer Sibling Cancer Hypertension Carcinoma of colon Testicular cancer Other Family history of cardiovascular disease Family history of malignant neoplasm Social History Social History Smoking status: Never smoker Alcohol intake: never Substance use: never Do You Feel Safe in your Home?: Yes Lack of Transportation: No Lack of Food: Never True Current Housing: I Have Housing Concerned About Future Housing: No Difficulty Paying Gas/Electric Bills: No Difficulty Paying for Meds: No Currently Unemployed: No Education: Don't Know Difficulty w/ Childcare or Family Care: No Living arrangements: with family Additional living arrangements comments: Spiritual care concerns: No Meds Home Medications and Allergies Home Medications ?Medication ?Instructions ?Recorded ?Confirmed ?Type cholecalciferol (vitamin D3) 50 50 mcg PO DAILY 08/23/23 11/07/24 History mcg (2,000 unit) tablet cyanocobalamin (vitamin B-12) 1,000 mcg PO DAILY 08/23/23 11/07/24 History 1,000 mcg tablet albuterol sulfate 90 mcg/actuation 2 puff inhalation Q4H PRN 06/01/24 10/30/24 Rx aerosol inhaler shortness of breath or wheezing #8.5 grams tizanidine 4 mg tablet See Rx Instructions .Route 08/15/24 10/30/24 Rx .COMPLEX #60 tabs lisinopril 5 mg tablet 5 mg PO HS 10/30/24 11/07/24 History Allergies Allergy/AdvReac Type Severity Reaction Status Date / Time No Known Allergies Allergy Verified 11/07/24 06:58 Vital Signs Vital Signs - 24 hr 11/07/24 06:12 Temperature 36.1 C L Pulse Rate 72 Respiratory Rate 16 Blood Pressure 144/76 H Pulse Oximetry 97 Oxygen Delivery Room Air Exam Const: General: cooperative and comfortable Resp: Effort & Inspection: normal respiratory effort Cardio: Rate: regular rate Rhythm: regular rhythm GI: GI Palp: Yes Soft to palpation Assessment and Plan Assessment and plan (1) Adenocarcinoma of prostate: Code(s): C61 - Malignant neoplasm of prostate Status: Acute Assessment and Plan: Robotic assist nerve sparing prostatectomy with possible plnd
--- NOTE | 2024-11-07 07:22 | WPDHPUPDATE1 ---
History and Physical Update Update Date/Time: 11/07/24 07:22 History and Physical has been reviewed, including an updated exam of the patient. There are NO changes in the patient's condition. Risks, benefits, and alternatives have been discussed and questions answered. Patient agrees to proceed with procedure.
[2024-11-07] MEDS: ceFAZolin 2 GM in SODIUM CHLORIDE 0.9% IV 50 ML 100 ML IVPB (07:32)
[2024-11-07] MEDS: BUPivacaine HCL 0.5% 10 ML AMP 30 ML INFILTRATE (08:42)
--- NOTE | 2024-11-07 12:41 | S_PTH ---
PATIENT: He Hernandez LOC: [facility] U#:[id number] AGE/SX: 69/M ROOM: RE11/07/[address]: Art Celeste, : 1955 BED: DIS: 11/08/2024 SPEC #: [id number] RECD: 11/08/24 07:43 STATUS: NEHEMIAS REQ #: [id number] BRETT: 11/07/24 12:[address]: Booker,Art Pereira DEPT: [facility] Surgical RECD BY: Maida Cabello ENTERED: 11/08/24 07:44 SP TYPE: Surgical OTHR DR: Michael Garcia MD Tissues: A - Prostate Procedures: Hematoxylin and Eosin Stain Gross and Microscopic Level 6
--- NOTE | 2024-11-07 13:19 | W.PM.PROC2 ---
Procedure Note - Detailed Date of Procedure 11/07/24 Pre-op Diagnosis prostate cancer Post-op Diagnosis Same Procedure Performed Robotic assisted nerve-sparing prostatectomy with extensive adhesiolysis Surgeon Art Celeste MD Anesthesia General Description of Procedure patient was taken the operative suite correctly identified. Once anesthesia was obtained was placed in low-lying dorsal lithotomy position prepped and draped usual sterile fashion. Sixteen Upper Sorbian Seaman was placed. Supraumbilical incision was made. . This was carried down to the rectus fascia. Veress needle was inserted the abdomen was insufflated 15 mmHg pressure. Camera port was placed in the standard fashion. Working ports were also inserted. The patient was placed in steep Trendelenburg position and the robot was docked. Patient had extensive amount of adhesiolysis of his colon in the left lower quadrant is else the right lower quadrant. These were taken down. The posterior approach was then taken. Bilateral seminal vesicles were dissected out. The vas were transected. Bladder was taken down. It was noted that he had quite a bit of adhesions simply from taken the bladder down from his prior bilateral inguinal hernias with mesh. Again extensive adhesions and fibrosis from this prior repair. Space of Retzius was difficult to develop due again to the inflammatory reaction from his prior surgery. It was difficult to isolate the dorsal venous complex as there was quite a bit of tissue overlying this area. Again this was adhered to the mesh. At this point time I simply transected the dorsal venous complex and then oversewed it. This gave us exposure to the prostate in urethra. Anterior bladder neck was open. Posterior bladder neck was also dissected out. Than on the was incised the seminal vesicles were isolated they had been dissected out. Bilateral nerve-sparing was performed after the pedicles were clipped. Urethra was transected. Specimen was placed in Endo-Catch bag. Again he had extensive adhesions around his iliac vessels from his prior surgeries. At this point I decided to withhold any lymphadenectomy. Bladder neck was reconstructed using V lock in a [id number] fashion the 3 a o'clock and 6 o'clock position. A Waldemar stitch was placed using 0 Vicryl. Anastomosis was made using V lock in a running fashion. There was a good approximation of urethral mucosa to bladder neck mucosa. Sixteen Upper Sorbian Saeman was placed with 10 cc in the balloon. The bladder was filled with 250 cc saline. There was no evidence of extravasation at this time. ERIC was placed through the 4th working port site. Robot was then docked. All lap count needle count sponge counts were correct. Midline incision was extended the specimen bag was retrieved. Rectus fascia was closed using 0 Vicryl running fashion. Subcuticular stitches were placed. Patient tolerated procedure well without any complications taken recovery stable condition. This completes dictation. Please send a copy of op note to my office Estimated Blood Loss 150 Drains Yes Packing No Pathology Yes Complications No immediate complications Condition Stable Disposition PACU
[2024-11-07] MEDS: fentaNYL CITRATE INJ (*CRX) 100 MCG/2 ML VIAL 25 MCG IV PUSH (14:10)
--- NOTE | 2024-11-07 14:45 | SUR.PHASEI ---
Patient meets PACU discharge criteria, unit bed unavailable at this time. Patient placed in extended recovery status.
--- NOTE | 2024-11-07 16:00 | ADMGEN ---
This patient, He Hernandez, was admitted to [address] [facility] Surg Room 302-01. Patient/family oriented to hospital policies and general routines including ID bracelet, bed and alarms, visiting hours, pain management, procedures, bathroom and other care routines, personal items, smoking policy, room service/diet, and visiting hours. Information on how to activate the Rapid Response Team has been discussed. Patient/Family are encouraged to report perceived risks to care and to ask questions if they do not understand what they are told or what they should do.
[2024-11-07] MEDS: DOCUSATE SODIUM 100 MG CAPSULE PO (16:16)
[2024-11-07] MEDS: LACTATED RINGERS 1,000 ML 125 ML IV CONT (16:18)
[2024-11-07] MEDS: HYDROcodone/acetaminophen (*CRX) 5-325 MG TABLET 2 TAB PO (16:41)
[2024-11-07] MEDS: KETOROLAC 15 MG/ML VIAL (*BKC) IV PUSH (20:05)
[2024-11-07] MEDS: ONDANSETRON INJ 4 MG/2 ML VIAL IV PUSH (20:09)
--- NOTE | 2024-11-07 23:29 | PC.NURSE ---
2000 PT AMBULATED AROUND ROOM AND SAT UP TO CHAIR. WELL TOLERATED
[2024-11-08] MEDS: LACTATED RINGERS 1,000 ML 125 ML IV CONT (00:32)
[2024-11-08 03:25] VITALS: BP 116/54; PULSE 71; RESP 16; TEMP 36.2; O2SAT 94
[2024-11-08 06:04] LABS: Hematocrit 38.3 % (42.0-52.0); Hemoglobin 12.6 g/dL (14.0-18.0)
[2024-11-08] MEDS: HYDROcodone/acetaminophen (*CRX) 5-325 MG TABLET 1 TAB PO (06:13)
[2024-11-08 06:26] LABS: Anion Gap 5 mmol/L (4-12); Blood Urea Nitrogen 11 mg/dL (9-20); Calcium 8.2 mg/dL (8.4-10.2); Carbon Dioxide 27 mmol/L (22-30); Chloride 104 mmol/L (98-107); Estimated CRCL calculation 70 ml/min; Estimated Glomerular Filt Rate > 60; Glucose 96 mg/dL (65-110); Potassium 4.4 mmol/L (3.4-5.0); Sodium 136 mmol/L (137-145)
--- NOTE | 2024-11-08 07:57 | WPDUROPN2 ---
Progress Note: A&P Assessment and Plan (1) Adenocarcinoma of prostate: Code(s): C61 - Malignant neoplasm of prostate Status: Acute Assessment and Plan: Doing well overall. Continue to increase activity. Re-evaluate ERIC output this afternoon. If minimal remove ERIC and discharge home with Seaman catheter. Follow-up in 1 week with catheter cystogram. Will have our nurse practitioner evaluate later this afternoon Subjective Subjective Date/Time Seen: 11/08/24 07:57 Post Op day: 1 (Robotic assisted nerve-sparing prostatectomy) Principal diagnosis: Adenocarcinoma prostate Interval history: He is feeling fairly good today. He has already been up walking this morning. Hemodynamically stable. Will evaluate ERIC output this morning possible discharge home this afternoon Review of Systems Review of Systems: All systems reviewed & are unremarkable except as noted in HPI and below Exam Const: General: cooperative, comfortable and no acute distress Resp: Effort & Inspection: normal respiratory effort Cardio: Rate: regular rate Rhythm: regular rhythm GI: GI Palp: Yes Soft to palpation Objective Data Vital Signs Vital Signs: Vital Signs - 24 hr 11/07/24 13:34 11/07/24 13:50 11/07/24 14:05 Temperature 36.9 C Pulse Rate 72 58 L 58 L Respiratory Rate 12 12 14 Blood Pressure 119/61 140/62 136/63 Pulse Oximetry 100 100 97 Oxygen Delivery Simple Face Mask Simple Face Mask Room Air Oxygen Flow Rate 8 8 11/07/24 14:20 11/07/24 14:35 11/07/24 15:00 Temperature Pulse Rate 55 L 61 57 L Respiratory Rate 12 12 12 Blood Pressure 137/59 L 140/65 137/60 Pulse Oximetry 92 93 94 Oxygen Delivery Room Air Room Air Room Air Oxygen Flow Rate 11/07/24 15:30 11/07/24 16:00 11/07/24 16:15 Temperature 35.9 C L 35.9 C L Pulse Rate 62 61 66 Respiratory Rate 14 16 14 Blood Pressure 127/67 144/60 H 133/59 L Pulse Oximetry 92 97 97 Oxygen Delivery Room Air Oxygen Flow Rate 11/07/24 16:26 11/07/24 16:30 11/07/24 16:45 Temperature 36.2 C L 36.2 C L Pulse Rate 73 73 Respiratory Rate 16 16 Blood Pressure 154/72 H 154/72 H Pulse Oximetry 97 97 97 Oxygen Delivery Room Air Oxygen Flow Rate 11/07/24 17:45 11/07/24 20:00 11/07/24 20:47 Temperature 36.3 C L 36.8 C Pulse Rate 76 81 81 Respiratory Rate 14 18 18 Blood Pressure 133/59 L 138/64 Pulse Oximetry 96 95 95 Oxygen Delivery Room Air Oxygen Flow Rate 11/07/24 23:12 11/08/24 03:25 Temperature 36.6 C 36.2 C L Pulse Rate 76 71 Respiratory Rate 16 16 Blood Pressure 115/61 116/54 L Pulse Oximetry 95 94 Oxygen Delivery Oxygen Flow Rate Intake/Output Intake/Output: Intake & Output 11/05/24 11/06/24 11/07/24 11/08/24 23:59 23:59 23:59 23:59 Intake Total 750 1600 Output Total 480 675 Balance 270 925 Meds/Results Medications: Active Medications Generic Name Dose Route Start Last Admin Trade Name Freq PRN Reason Stop Dose Admin Hydrocodone Bitart/Acetaminophen 1 tab 11/07/24 15:41 11/08/24 06:13 Hydrocodone/Acetaminophen (*Crx) 5-325 Mg Tablet PO 1 tab Q6H PRN Administration Pain Rated 1-3 Hydrocodone Bitart/Acetaminophen 2 tab 11/07/24 15:41 11/07/24 16:41 Hydrocodone/Acetaminophen (*Crx) 5-325 Mg Tablet PO 2 tab Q6H PRN Administration Pain Rated 4-6 Docusate Sodium 100 mg 11/07/24 17:00 11/07/24 16:16 Docusate Sodium 100 Mg Capsule PO 100 mg BID MICKEY Administration Hyoscyamine 0.125 mg 11/07/24 15:41 Hyoscyamine Sulfate 0.125 Mg Tablet SUBLINGUAL Q4H PRN Bladder Spasm Lactated Ringer's 1,000 mls @ 125 mls/hr 11/07/24 15:41 11/08/24 00:32 Lr - Lactated Ringers Iv IV CONT 125 mls/hr .Q8H MICKEY Administration Ketorolac Tromethamine 15 mg 11/07/24 15:41 11/07/24 20:05 Ketorolac 15 Mg/Ml Vial (*Bkc) IV PUSH 11/08/24 15:40 15 mg Q6H PRN Administration Pain Rated 4-6 Levofloxacin 500 mg 11/08/24 09:00 Levofloxacin 500 Mg Tablet PO DAILY MICKEY Morphine Sulfate 1 mg 08/19/25 15:41 Morphine Sulfate (*Crx) 2 Mg/Ml Inj IV PUSH Q2H PRN Pain Rated 7-10 Naloxone HCl 0.1 mg 11/07/24 15:41 Naloxone Hcl 0.4 Mg/Ml Vial IV PUSH Q2M PRN Opiate Reversal Ondansetron HCl 4 mg 11/07/24 15:41 11/07/24 20:09 Ondansetron Inj 4 Mg/2 Ml Vial IV PUSH 4 mg Q6H PRN Administration Nausea And Vomiting Labs Labs: Laboratory Results - last 24 hr 11/08/24 05:09 Hgb 12.6 L D Hct 38.3 L Sodium 136 L Potassium 4.4 Chloride 104 Carbon Dioxide 27 Anion Gap 5 BUN 11 Creatinine 0.99 Estim Creat Clear Calc 70 Estimated GFR > 60 Glucose 96 Calcium 8.2 L
[2024-11-08] MEDS: DOCUSATE SODIUM 100 MG CAPSULE PO (08:30)
--- NOTE | 2024-11-08 13:18 | PM.DS ---
DS: Admitting Diagnosis Discharge Date 11/08/2024 Admitting Diagnosis Principal diagnosis: Adenocarcinoma prostate DS: Discharge Diagnosis Discharge Diagnosis Plan Post Op day: 1 (Robotic assisted nerve-sparing prostatectomy) Principal diagnosis: Adenocarcinoma prostate Doing well overall. Continue to increase activity. I removed his ERIC and placed a 4x4 with tegaderm for dressing. patient tolerated well. He will discharge home with Seaman catheter. Follow-up in 1 week with catheter cystogram. DS: Summary Hospital Course Reason for hospitalization: Principal diagnosis: Adenocarcinoma prostate Hospital Course: POD 1 Post Op day: 1 (Robotic assisted nerve-sparing prostatectomy) Status at Discharge Functional status at discharge: independent ambulation Overall status at discharge: patient is back to baseline Time Spent with Patient Time attestation: Total time spent providing and/or coordinating discharge services: Exam Const: General: comfortable and no acute distress HENMT: Mouth: Yes moist mucous membranes Eyes: General: appearance normal, both eyes and all related structures Neck: Neck: supple and no JVD Resp: Effort & Inspection: normal respiratory effort Cardio: Rate: regular rate GI: GI Palp: Yes Soft to palpation Auscultation: normal bowel sounds Other: passing gas abdominal incisions well approximated and SALES PROMOTION REPRESENTATIVE : Male General Exam: Yes normal external exam Urinary Catheter: Urinary Catheter: patent and draining Skin: General skin exam: normal color Extrem: General: normal to inspection Psych: Mental Status: mental status grossly normal DS: Data Data Completed and Pending Pending studies at discharge: Pending at discharge 11/07/24 12:41 Surgical [PTH] Routine Labs on day of discharge: Labs from last 24 hours 11/08/24 05:09 Hgb 12.6 L D Hct 38.3 L Sodium 136 L Potassium 4.4 Chloride 104 Carbon Dioxide 27 Anion Gap 5 BUN 11 Creatinine 0.99 Estim Creat Clear Calc 70 Estimated GFR > 60 Glucose 96 Calcium 8.2 L Discharge Plan Discharge Patient Disposition: Home Patient Language: Ivorian Stand Alone Forms: General Discharge Instructions Follow-up/Referrals: Art Celeste MD [Physician, Urology] Referral Note: keep follow up appointment. Discharge Medications: New hyoscyamine sulfate [Anaspaz] 0.125 mg Tablet,Disintegrating 0.125 mg sublingual Q4H PRN (Reason: Bladder Spasm) Qty: 20 0RF docusate sodium 100 mg Capsule 100 mg PO BID 7 Days Qty: 14 0RF levofloxacin 500 mg Tablet 500 mg PO DAILY Qty: 10 0RF Continued cyanocobalamin (vitamin B-12) 1,000 mcg Tablet 1,000 mcg PO DAILY cholecalciferol (vitamin D3) 50 mcg (2,000 unit) Tablet 50 mcg PO DAILY lisinopril 5 mg tablet 5 mg PO HS albuterol sulfate 90 mcg/actuation HFA aerosol inhaler 2 puff inhalation Q4H PRN (Reason: shortness of breath or wheezing) Qty: 8.5 2RF tizanidine 4 mg tablet See Rx Instructions .ROUTE .COMPLEX Qty: 60 0RF Dose Instruction: TAKE 1 TABLET BY MOUTH EVERY DAY AT BEDTIME NEEDED FOR MUSCLE SPASMS Rx Instructions: TAKE 1 TABLET BY MOUTH EVERY DAY AT BEDTIME NEEDED FOR MUSCLE SPASMS
[2024-11-08 13:26] VITALS: BP 116/46; PULSE 77; RESP 16; TEMP 36.6; O2SAT 95
== END 2024-11-08 16:40 | disposition home or self-care (01) ==
LOC: ANHSURGERY 05:59 → ANH3MEDSUR 15:46
PROVIDERS: PCP Family Medicine; Visit Provider Urology
PROC: 0VT04ZZ Resection of Prostate, Percutaneous Endoscopic Approach (ICD-10-PCS; CPT 55867; principal; 2024-11-07 07:30)
DX: C61 Malignant neoplasm of prostate (principal); N40.0 Benign prostatic hyperplasia without lower urinary tract symptoms; K66.0 Peritoneal adhesions (postprocedural) (postinfection); E78.5 Hyperlipidemia, unspecified; J45.909 Unspecified asthma, uncomplicated; Z79.51 Long term (current) use of inhaled steroids; Z98.890 Other specified postprocedural states; Z90.49 Acquired absence of other specified parts of digestive tract; Z98.1 Arthrodesis status; Z87.19 Personal history of other diseases of the digestive system; Z80.3 Family history of malignant neoplasm of breast; Z80.0 Family history of malignant neoplasm of digestive organs; Z80.43 Family history of malignant neoplasm of testis; Z82.49 Family history of ischemic heart disease and other diseases of the circulatory system
CPT/HCPCS: 55866; S2900; 36415; 80048; 85014; 85018; 88309; J0690; A9270; C1713; J1100; J1171; J1885; J2003; J2250; J2405; J2704; J3010; J3373; J7030; J7120; Q9968

== ENCOUNTER 2024-11-16 12:00 | Outpatient (CLI) | payer MEDICARE, OTHER, SELFPAY ==
--- NOTE | ~2024-11-16 | XR_ITS ---
EXAMINATION: CYSTOGRAM DATE: 11/16/2024 12:40 INDICATION: 9 days post prostatectomy for prostate cancer TECHNIQUE: Initial nuclear unit operator radiograph of the pelvis was performed. There was retrograde administration of Omnipaque 350 mixed with saline contrast into patient's existing Seaman catheter. Fluoroscopic images of the pelvis were obtained. A total of one overhead radiograph and 24 fluoroscopic images were r ecorded. Fluoroscopy exposure time was 0.4 minutes. Total DAP was 6.5 Gycm^2. FINDINGS: V-shaped configuration at the base of the bladder consistent with prior prostatectomy. No evident leak at the cystourethral anastomosis. IMPRESSION: No bladder leak post prostatectomy. Reviewed, dictated and finalized at location A.
== END 2024-11-16 12:01 | disposition home or self-care (01) ==
PROVIDERS: PCP Family Medicine; Visit Provider Urology
DX: C61 Malignant neoplasm of prostate (principal)
CPT/HCPCS: 51600; 74430; Q9967

== ENCOUNTER 2025-01-29 07:56 | Emergency (ER) | payer OTHER, MEDICARE, SELFPAY ==
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
[2025-01-29 07:59] VITALS: BP 151/73; PULSE 62; RESP 16; TEMP 36.3; O2SAT 97
--- OUTSIDE RECORDS SUMMARY | 2025-01-29 08:00 | XMS_ITS | Clinical Summary ---
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 Gender Identity Not on file Sexual Orientation Not on file Last Filed Vital Signs Vital Sign Reading Time Taken Comments Blood Pressure 120/78 01/27/2020 3:10 PM TRAIN BRAKE OPERATOR Pulse 77 01/27/2020 3:10 PM TRAIN BRAKE OPERATOR Temperature 37.1 C (98.7 F) 01/27/2020 3:10 PM TRAIN BRAKE OPERATOR Respiratory Rate 20 01/27/2020 3:10 PM TRAIN BRAKE OPERATOR Oxygen Saturation 96% 01/27/2020 3:10 PM TRAIN BRAKE OPERATOR Inhaled Oxygen Concentration - - Weight - [...] 2007 Zoster Immunization (1 of 2) 2007 Influenza Immunization (#1) 2024 SARS-COV-2 Immunization (3 - 2024- season) 2024 12/09/2020, 11/18/2020 Respiratory Syncytial Virus (RSV) Immunization (Adult) (1 [...] age to complete this topic Care Teams Ethyl Blender Relationship Specialty Start Date End Date Provider, None [place] PCP - General 01/27/20
--- OUTSIDE RECORDS SUMMARY | 2025-01-29 08:00 | XMS_ITS | Clinical Summary ---
Author Organization [facility] Address [address] [place] [address] Care Team Providers Care Enchilada Maker Name Role Phone Rebekah Butler Primary Care [...] of 2) 2007 COVID-19 Vaccine (3 - 2024-2 6 season) 2024 12/09/2020, 11/18/2020 Influenza Adult (#1) 2024 RSV Immunization or 60+ Years (1 - 1-dose 75+ series) 2032 Hepatitis A Vaccines Aged Out No long er eligible based on patient's age to complete this topic Meningococcal B Vaccine Aged Out No l onger eligible based on patient's age to complete this topic Meningococcal Vaccine Aged Out No hollie janneth eligible based on patient's age to complete this topic RSV Immunizations Under 20 Months Aged Out No longer eligible b ased on patient's age to complete this topic Care Teams Enchilada Maker Relationship Specialty [place] [address] [place] [address] PCP - General PHYSICIAN SPECIAL EDUCATION EDUCATIONAL ASSISTANT 10/27/21
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
--- OUTSIDE RECORDS SUMMARY | 2025-01-29 10:10 | XMS_ITS | Clinical Summary ---
Author Organization [facility] Address [address] [place] [address] Care Team Providers Care Director Of Front Office Name Role Phone Rebekah Butler Primary Care [...] age to complete this topic Care Teams Director Of Front Office Relationship Specialty [place] [address] [place] [address] PCP - General PHYSICIAN CRA OFFICER 10/27/21
--- OUTSIDE RECORDS SUMMARY | 2025-01-29 10:10 | XMS_ITS | Clinical Summary ---
Author Organization [facility] Address [address] [place] [address] Phone Care Team Providers Care Reconciliation Accountant Name Role Phone Provider, None Primary Care [...] on file Legal Sex Male 2:34 PM BACK SEAM STITCHER Gender Identity Not on file Sexual Orientation Not on file Last Filed Vital Signs Vital Sign Reading Time Taken Comments Blood Pressure 120/78 01/27/2020 3:10 PM BACK SEAM STITCHER Pulse 77 01/27/2020 3:10 PM BACK SEAM STITCHER Temperature 37.1 C (98.7 F) 01/27/2020 3:10 PM BACK SEAM STITCHER Respiratory Rate 20 01/27/2020 3:10 PM BACK SEAM STITCHER Oxygen Saturation 96% 01/27/2020 3:10 PM BACK SEAM STITCHER Inhaled Oxygen Concentration - - Weight - [...] age to complete this topic Care Teams Reconciliation Accountant Relationship Specialty Start Date End Date Provider, None [place] PCP - General 01/27/20
== END 2025-01-29 09:38 | disposition home or self-care (01) ==
LOC: ANHED 09:32
PROVIDERS: Emergency Provider Emergency Medicine; PCP Nurse Practitioner Family
DX: M54.50 Low back pain, unspecified (principal); J45.909 Unspecified asthma, uncomplicated; E78.5 Hyperlipidemia, unspecified
CPT/HCPCS: 72131; 99284

== ENCOUNTER 2025-02-12 09:32 | Day surgery (SDC) | payer MEDICARE, OTHER, SELFPAY ==
[2025-01-31 11:40] VITALS: BMI 25.4
[2025-02-12 09:44] VITALS: BP 148/86; PULSE 86; RESP 18; TEMP 37.1; O2SAT 99
[2025-02-12] MEDS: LACTATED RINGERS 1,000 ML 150 ML IV CONT (09:58)
--- OUTSIDE RECORDS SUMMARY | 2025-02-12 10:40 | XMS_ITS | Clinical Summary ---
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 Name Role Phone Provider, None Primary Care [...] on file Legal Sex Male 2:34 PM COLLAR STITCHER Gender Identity Not on file Sexual Orientation Not on file Last Filed Vital Signs Vital Sign Reading Time Taken Comments Blood Pressure 120/78 01/27/2020 3:10 PM COLLAR STITCHER Pulse 77 01/27/2020 3:10 PM COLLAR STITCHER Temperature 37.1 C (98.7 F) 01/27/2020 3:10 PM COLLAR STITCHER Respiratory Rate 20 01/27/2020 3:10 PM COLLAR STITCHER Oxygen Saturation 96% 01/27/2020 3:10 PM COLLAR STITCHER Inhaled Oxygen Concentration - - Weight [...] age to complete this topic Care Teams National Flatbed Truck Driver Relationship Specialty Start Date End Date Provider, None [place] PCP - General 01/27/20
--- OUTSIDE RECORDS SUMMARY | 2025-02-12 10:40 | XMS_ITS | Clinical Summary ---
Author Organization [facility] Address [address] [place] [address] Care Team Providers Care Safety Person Name Role Phone Rebekah Butler Primary Care [...] age to complete this topic Care Teams Safety Person Relationship Specialty [place] [address] [place] [address] PCP - General PHYSICIAN KETTLE TENDER 10/27/21
--- NOTE | 2025-02-12 11:05 | WPDANESEPPF ---
Anes - Initial Pre Proc Eval Procedure: Operation Date: 02/12/25 11:00 Proposed Procedures p Screening Colonoscopy - Cameron Mackay DO Date/Time: 02/12/25 11:05 Surgeon: Cameron Mackay DO Pre Op Diagnosis: History of Colon Polyps Patient Data Age: 69 Gender: M Height: 1.83 m Weight: 83.6 kg Last Vital Signs Temp 98.7 F 02/12/25 09:44 Pulse 86 02/12/25 09:44 Resp 18 02/12/25 09:44 BP 148/86 H 02/12/25 09:44 Pulse Ox 99 02/12/25 09:44 O2 Del Method Room Air 02/12/25 09:44 Allergies Allergy/AdvReac Type Severity Reaction Status Date / Time No Known Allergies Allergy Verified 02/12/25 09:43 Home Medications ?Medication ?Instructions ?Recorded ?Confirmed ?Type cholecalciferol (vitamin D3) 50 50 mcg PO DAILY 08/23/23 02/12/25 History mcg (2,000 unit) tablet cyanocobalamin (vitamin B-12) 1,000 mcg PO DAILY 08/23/23 02/12/25 History 1,000 mcg tablet albuterol sulfate 90 mcg/actuation 2 puff inhalation Q4H PRN 06/01/24 01/31/25 Rx aerosol inhaler shortness of breath or wheezing #8.5 grams lisinopril 5 mg tablet 5 mg PO HS 10/30/24 02/12/25 History tizanidine 4 mg tablet 4 mg PO QHS PRN muscle spasticity 01/01/25 02/12/25 Rx #60 tabs Patient hx anesthesia problems: none Family hx anesthesia problems: none Results Review: All pre-operative results and documents have been reviewed as part of the pre-operative evaluation. [facility] Past Medical History Medical History (Updated 01/30/25 @ 00:00 by Background Daemon) Asthma Prostate cancer Hyperlipidemia Elevated PSA COVID 2019 Left inguinal hernia Surgical History Surgical History (Updated 11/08/24 @ 17:20 by Michael Garcia MD) H/O prostatectomy History of partial colectomy 12/15/23 Robotic assisted laparoscopic segmental transverse colon resection with stapled [id number] colonic anastomosis Dr. Ferrell H/O right inguinal hernia repair Karthik Ferrell MD 08/31/23 H/O left inguinal hernia repair recurrent LIH repair with mesh Karthik Ferrell MD 08/31/23 History of back surgery 2019 Family History Family History Father Hypertension Mother Hypertension Heart disease Cerebrovascular accident Breast cancer Sibling Cancer Hypertension Carcinoma of colon Testicular cancer Other Family history of cardiovascular disease Family history of malignant neoplasm Social History Social History Smoking status: Never smoker Alcohol intake: never Substance use: never Substance use type: does not use Do You Feel Safe in your Home?: Yes Lack of Transportation: No Lack of Food: Never True Current Housing: I Have Housing Concerned About Future Housing: No Difficulty Paying Gas/Electric Bills: No Difficulty Paying for Meds: No Currently Unemployed: No Education: Don't Know Difficulty w/ Childcare or Family Care: No Living arrangements: with family Additional living arrangements comments: Spiritual care concerns: No Anes - Eval Final PreProcedure Day of Procedure 02/12/25 11:05 Heart: regular rate and rhythm Lungs: clear to auscultation Airway: Mallampati scale class II Neurological: alert and oriented Last oral intake: >/= 8 hours ASA classification: II Anesthetic plan: proceed Anesthesia type and monitoring: general Results Review: All pre-operative results and documents have been reviewed as part of the pre-operative evaluation. Informed Consent: The patient's anesthetic plan and its attendant risks and benefits were discussed with the patient/family/POA. Questions were solicited and answers provided to the satisfaction of the patient/family/POA.
--- NOTE | 2025-02-12 11:16 | P.HP_ITS ---
H&P: HPI History of Present Illness Date/Time: 02/12/25 11:16 Chief Complaint: hx colon polyp Narrative: 69 yo presents for colonoscopy. Last scope 1 year ago, and large polyp identified. He underwent robotic transverse colectomy by Dr. Ferrell. Denies hematochezia/melena. No fam hx colon cancer. Review of Systems Review of Systems: All systems reviewed & are unremarkable except as noted in HPI and below Constitutional: Constitutional: Denies chills, Denies fever(s), Denies headache(s) and Denies weight loss Eyes: Eyes: Denies change in vision ENT: Denies dizziness, Denies headache(s), Denies neck mass and Denies throat swelling Cardiovascular: Cardiovascular: Denies chest pain, Denies lightheadedness and Denies dyspnea Respiratory: Respiratory: Denies cough, Denies dyspnea and Denies wheezing Gastrointestinal: Gastrointestinal: Denies abdominal pain, Denies change in bowel habits, Denies nausea and Denies vomiting Genitourinary: Genitourinary: Denies hematuria and Denies dysuria Musculoskeletal: Musculoskeletal: Reports as per HPI Integumentary/Breasts: Skin/Breast: Reports as per HPI Neurologic: Denies dizziness and Denies headache(s) Allergic/Immunologic: Allergic/Immunologic: Denies throat swelling and Denies wheezing [facility] Past Medical History Medical History (Updated 01/30/25 @ 00:00 by Background Daemon) Asthma Prostate cancer Hyperlipidemia Elevated PSA COVID 2019 Left inguinal hernia Surgical History Surgical History (Updated 11/08/24 @ 17:20 by Michael Garcia MD) H/O prostatectomy History of partial colectomy 12/15/23 Robotic assisted laparoscopic segmental transverse colon resection with stapled [id number] colonic anastomosis Dr. Ferrell H/O right inguinal hernia repair Karthik Ferrell MD 08/31/23 H/O left inguinal hernia repair recurrent LIH repair with mesh Karthik Ferrell MD 08/31/23 History of back surgery 2019 Family History Family History Father Hypertension Mother Hypertension Heart disease Cerebrovascular accident Breast cancer Sibling Cancer Hypertension Carcinoma of colon Testicular cancer Other Family history of cardiovascular disease Family history of malignant neoplasm Social History Social History Smoking status: Never smoker Alcohol intake: never Substance use: never Substance use type: does not use Do You Feel Safe in your Home?: Yes Lack of Transportation: No Lack of Food: Never True Current Housing: I Have Housing Concerned About Future Housing: No Difficulty Paying Gas/Electric Bills: No Difficulty Paying for Meds: No Currently Unemployed: No Education: Don't Know Difficulty w/ Childcare or Family Care: No Living arrangements: with family Additional living arrangements comments: Spiritual care concerns: No Meds Home Medications and Allergies Home Medications ?Medication ?Instructions ?Recorded ?Confirmed ?Type cholecalciferol (vitamin D3) 50 50 mcg PO DAILY 02/12/25 History mcg (2,000 unit) tablet cyanocobalamin (vitamin B-12) 1,000 mcg PO DAILY 08/2202/12/25 History 1,000 mcg tablet albuterol sulfate 90 mcg/actuation 2 puff inhalation Q 4H PRN 06/01/24 01/31/25 Rx aerosol inhaler shortness of breath or wheez ing #8.5 grams lisinopril 5 mg tablet 5 mg PO HS 10/30/24 02/12/25 History tizanidine 4 mg tablet 4 mg PO QHS PRN muscle spast icity 01/01/25 02/12/25 Rx #60 tabs Allergies Allergy/AdvReac Type Severity Reaction Status Date / Time No Known Allergies Allergy Verified 02/12/25 09:43 Vital Signs Vital Signs - 24 hr 02/12/25 09:44 Temperature 98.7 F Pulse Rate 86 Respiratory Rate 18 Blood Pressure 148/86 H Pulse Oximetry 99 Oxygen Delivery Room Air Exam Const: General: no acute distress and alert Orientation/consciousness: patient oriented x3 HENMT: Head: normocephalic and atraumatic Ears: hearing grossly normal bilaterally Face/Nose/Sinus: Normal nares present Mouth: Yes Normal oral and palatal mucosa present Eyes: Periorbital: periorbital findings normal Sclera: sclerae normal EOM: EOMs intact bilaterally Neck: Neck: normal visual inspection, no lymphadenopathy and trachea midline Chest: Chest palpation & inspection: normal inspection of the chest Resp: Effort & Inspection: normal respiratory effort Auscultation: clear to auscultation bilaterally Cardio: Jugular venous distension: no JVD Rate: regular rate Rhythm: regular rhythm Heart sounds: S1 normal heart sound present and S2 normal heart sound present Peripheral pulses: Peripheral pulses 2+ throughout GI: Inspection: normal to inspection GI Palp: Yes Soft to palpation, No Tenderness to palpation present (GI), No Guarding due to palpation present (GI) and No Rebound tenderness present Percussion: Yes normal to percussion Auscultation: normal bowel sounds : General: Yes no CVA tenderness Back/Spine/Pelvis: Back: no CVA tenderness Neuro: General: patient oriented x3, no focal motor deficits and CN's II-XI intact bilaterally Cognition (Neuro): normal cognition Speech: normal speech Motor exam (neuro): 5/5 motor strength present throughout Extrem: General: capillary refill normal and no clubbing, cyanosis or edema Assessment and Plan Assessment and plan (1) Polyp of transverse colon: Qualifiers: Colon polyp type: adenomatous Qualified Code(s): D12.3 - Benign neoplasm of transverse colon Code(s): K63.5 - Polyp of colon Status: Acute Assessment and Plan: I have recommended colonoscopy. I have discussed the procedure, risks, benefits, and alternatives. Questions were answered. Patient is agreeable to proceed.
--- NOTE | 2025-02-12 11:34 | WPDANESPN ---
Anes - Prog Note Post-Op Date/Time: 02/12/25 11:34 Vital Signs: Last Vital Signs Temp 98.7 F 02/12/25 09:44 Pulse 86 02/12/25 09:44 Resp 18 02/12/25 09:44 BP 148/86 H 02/12/25 09:44 Pulse Ox 99 02/12/25 09:44 O2 Del Method Room Air 02/12/25 09:44 Pain Score (VAS): no Patient Feedback: Patient satisfied with anesthetic care.
[2025-02-12 11:43] VITALS: BP 120/66; PULSE 75; RESP 16; O2SAT 99
[2025-02-12 11:50] VITALS: BP 115/74; PULSE 75; RESP 20; O2SAT 98
[2025-02-12 12:00] VITALS: BP 138/74; PULSE 66; RESP 20; O2SAT 100
== END 2025-02-12 12:05 | disposition home or self-care (01) ==
PROVIDERS: PCP Nurse Practitioner Family; Visit Provider Surgery
PROC: 0DJD8ZZ Inspection of Lower Intestinal Tract, Via Natural or Artificial Opening Endoscopic (ICD-10-PCS; CPT 45378; principal; 2025-02-12 11:00)
DX: Z09 Encounter for follow-up examination after completed treatment for conditions other than malignant neoplasm (principal); K63.5 Polyp of colon; Z98.0 Intestinal bypass and anastomosis status; Z90.49 Acquired absence of other specified parts of digestive tract
CPT/HCPCS: 45380

== ENCOUNTER 2025-02-12 10:24 | Outpatient (NON) | payer MEDICARE, OTHER, SELFPAY ==
--- NOTE | 2025-02-12 | S_PTH ---
PATIENT: He Hernandez . LOC: [facility]#:[id number] AGE/SX: 69/M ROOM: RE02/12/[address]: Cameron Mackay DO : 1955 BED: DIS: 02/12/2025 SPEC #: [id number] RECD: 02/13/25 10:45 STATUS: NEHEMIAS REKristian #: [id number] BRETT: 02/12/25 00:[address]: Cameron Mackay DEPT: [facility] Surgical RECD BY: Willem Johnson ENTERED: 02/13/25 10:45 SP TYPE: Surgical OTHR DR: Caryl Garcia APRN Tissues: A - Colon Polypectomy Procedures: Hematoxylin and Eosin Stain Gross and Microscopic Level 4
--- OUTSIDE RECORDS SUMMARY | 2025-02-13 11:42 | XMS_ITS | Clinical Summary ---
Author Organization [facility] Address [address] [place] [address] Phone Care Team Providers Care Industrial Furnace Fabricator Name Role Phone Provider, None Primary Care [...] on file Legal Sex Male 2:34 PM MAGNETIC RESONANCE TECHNOLOGIST Gender Identity Not on file Sexual Orientation Not on file Last Filed Vital Signs Vital Sign Reading Time Taken Comments Blood Pressure 120/78 01/27/2020 3:10 PM MAGNETIC RESONANCE TECHNOLOGIST Pulse 77 01/27/2020 3:10 PM MAGNETIC RESONANCE TECHNOLOGIST Temperature 37.1 C (98.7 F) 01/27/2020 3:10 PM MAGNETIC RESONANCE TECHNOLOGIST Respiratory Rate 20 01/27/2020 3:10 PM MAGNETIC RESONANCE TECHNOLOGIST Oxygen Saturation 96% 01/27/2020 3:10 PM MAGNETIC RESONANCE TECHNOLOGIST Inhaled Oxygen Concentration - - Weight - [...] age to complete this topic Care Teams Industrial Furnace Fabricator Relationship Specialty Start Date End Date Provider, None [place] PCP - General 01/27/20
--- OUTSIDE RECORDS SUMMARY | 2025-02-13 11:42 | XMS_ITS | Clinical Summary ---
Author Organization [facility] Address [address] [place] [address] Care Team Providers Care Sales Development Consultant Name Role Phone Rebekah Butler Primary Care Provider [phone] Social History Tobacco Use Types Packs/Day Years [...] age to complete this topic Care Teams Sales Development Consultant Relationship Specialty [place] [address] [place] [address] PCP - General PHYSICIAN FAMILY COACH 10/27/21
== END 2025-02-12 10:25 | disposition home or self-care (01) ==
LOC: ANHLAB 02-13 10:25
PROVIDERS: PCP Nurse Practitioner Family; Visit Provider Surgery
DX: Z12.11 Encounter for screening for malignant neoplasm of colon (principal)
CPT/HCPCS: 88305

== ENCOUNTER 2025-03-05 09:30 | Outpatient (CLI) | payer MEDICARE, OTHER, SELFPAY ==
[2025-03-05 11:21] LABS: Hematocrit 45.2 % (42.0-52.0); Hemoglobin 14.8 g/dL (14.0-18.0); Immature Granulocyte Percent A 0.2 % (0-0.5); Lymphocytes Absolute Auto 1.53 K/mm3 (0.9-3.2); Mean Corpuscular HGB Conc 32.7 g/dl (32-36); Mean Corpuscular Hemoglobin 30.7 pg (26-34); Mean Corpuscular Volume 93.8 fl (80-100); Nucleated Red Blood Cells Absolute Auto 0.000 K/mm3 (0.0-0.012); Nucleated Red Blood Cells Perc 0.0 % (0.0-0.2); Platelet Count Result 332 k/mm3 (150-375); Red Blood Count 4.82 M/mm3 (4.6-6.20); White Blood Count 5.9 K/mm3 (4.5-10.0)
[2025-03-05 11:28] LABS: Alanine Aminotransferase 18 U/L (6-50); Albumin Level 4.3 g/dL (3.5-5.1); Alkaline Phosphatase 59 U/L (38-126); Anion Gap 2 mmol/L (4-12); Aspartate Amino Transferase 44 U/L (17-59); Bilirubin,Total 0.6 mg/dL (0.2-1.3); Blood Urea Nitrogen 10 mg/dL (9-20); Calcium 9.1 mg/dL (8.4-10.2); Carbon Dioxide 31 mmol/L (22-30); Chloride 105 mmol/L (98-107); Cholesterol 194 mg/dL (0-200); Estimated Glomerular Filt Rate > 60; Glucose 94 mg/dL (65-110); HDL Direct 44 mg/dL; Potassium 4.9 mmol/L (3.4-5.0); Sodium 138 mmol/L (137-145); Total Protein 7.2 g/dL (6.3-8.2); Triglycerides 89 mg/dL (<150)
[2025-03-05 11:53] LABS: Thyroid Stimulating Hormone Reflex 0.916 uIU/mL (0.465-4.68)
[2025-03-05 12:27] LABS: Vitamin B12 837.0 pg/mL (239-931)
== END 2025-03-05 09:31 | disposition home or self-care (01) ==
LOC: ANHGOSHLAB 09:31
PROVIDERS: PCP Family Medicine; Visit Provider Nurse Practitioner Family
DX: R73.01 Impaired fasting glucose (principal); I10 Essential (primary) hypertension; C61 Malignant neoplasm of prostate; E53.9 Vitamin B deficiency, unspecified
CPT/HCPCS: 36415; 80053; 80061; 82607; 84443; 85025